=== PATIENT | male | born 1935 | race Caucasian/White ===

== ENCOUNTER 2017-06-24 10:58 | Day surgery (SDC) | payer MEDICARE, BC ==
[~2017-06-24 10:58] MED LIST: Acetaminophen TAB* 325 MG PO PRN; Buffered Lidocaine 0.9% SYRIN* 5 ML/SYR SYRINGE INTRADERM ONE; Cyclopentolate 1% OPTH.SOL* 2 ML BTL ONE; Ketorolac 0.5% OPHTH (NF) 0.5 % 5 ML BTL ONE; Lidocaine 1% MPF* 2 ML VIAL ONE; Midazolam* 1 MG/ML 2 ML VIAL (2 MG) ONE; Neomycin/Polymy/Dex OPHTH.OIN* 3.5 GM ONE; Phenylephrine 2.5% OPTH.SOL* 2 ML BTL ONE; Povidone Iodine 5% OPTH* 30 ML BTL ONE; Tetracaine 0.5% OPTH.SOL 4 ML* 1 DROP BTL ONE; Tropicamide 1% OPTH.SOL* BTL ONE; acetaZOLAMIDE TAB* 250 MG ONE
[2017-06-24 12:42] VITALS: BP 118/64
--- NOTE | 2017-06-25 11:49 | OP ---
DATE OF OPERATION: 06/24/17 - [facility] DATE OF : 35 SURGEON: Eder Cevallos MD ANESTHESIA: Monitored anesthesia care. PRE-OP DIAGNOSIS: Cataract, left eye. POST-OP DIAGNOSIS: Cataract, left eye. OPERATIVE PROCEDURE: Extracapsular cataract extraction of the left eye with intraocular lens implant. IMPLANTS: SN60WF 22.5 diopter lens, left eye. COMPLICATIONS: None. DESCRIPTION OF PROCEDURE: The patient was given phenylephrine 2.5% and cyclopentolate 1% eyedrops to the operative eye in the preoperative area. The patient was brought to the operating room where a time-out was taken to identify the correct patient, site, and side of surgery. The patient's left eye was prepped and draped in the usual sterile fashion with 5% Betadine. A second time-out was taken to verify the correct patient, site, and side of surgery, and correct lens selection. A lid speculum was placed to the left eye. A 1-mm paracentesis blade was used to make a clear corneal incision in the inferotemporal position. Preservative-free 1% lidocaine was injected into the anterior chamber. A DisCoVisc was injected into the anterior chamber. A 2.75-mm keratome blade was used to make a triplanar incision at the superotemporal position. A cystotome initiated a capsulorrhexis which was completed with Utrata forceps in a continuous and curvilinear manner. Hydrodissection of the lens was performed with BSS on a cannula. The lens could be spun in the capsular bag. The phacoemulsification handpiece was used with a vqkzde-qib-rycewbe technique to remove the nucleus in its entirety with 27.8 CDE. The I/A handpiece then removed the residual cortical lens material. DisCoVisc was injected to inflate the capsular bag. The planned SN60WF 22.5 diopter lens was injected into the capsular bag. The residual DisCoVisc was removed from the eye with the I/A handpiece. The corneal incisions were hydrated and no leaks occurred at physiologic pressure around 20 mmHg per palpation. The lid speculum was removed and drapes removed. Maxitrol ointment was placed to the surface of the operative eye. An adhesive patch and shield was then placed on the operative eye. The patient was taken to the postoperative area in stable condition. [id number] #: [id number] MTDD
== END 2017-06-24 12:55 | disposition home or self-care (01) ==
LOC: OREAST 10:58
PROVIDERS: ATTEND Student in an Organized Health Care Education/Training Program
DX: H25.12 Age-related nuclear cataract, left eye (principal); H35.3134 Nonexudative age-related macular degeneration, bilateral, advanced atrophic with subfoveal involvement; I50.9 Heart failure, unspecified; Z87.891 Personal history of nicotine dependence; I25.10 Atherosclerotic heart disease of native coronary artery without angina pectoris; N18.3 Chronic kidney disease, stage 3 (moderate); F10.20 Alcohol dependence, uncomplicated; I27.20 Pulmonary hypertension, unspecified; I42.9 Cardiomyopathy, unspecified
CPT/HCPCS: A9270-GY; J2250; V2632

== ENCOUNTER 2017-07-01 08:36 | Day surgery (SDC) | payer MEDICARE, BC ==
[~2017-07-01 08:36] MED LIST changes: -Cyclopentolate 1% OPTH.SOL* 2 ML BTL ONE; -Ketorolac 0.5% OPHTH (NF) 0.5 % 5 ML BTL ONE; -Lidocaine 1% MPF* 2 ML VIAL ONE; -Midazolam* 1 MG/ML 2 ML VIAL (2 MG) ONE; -Neomycin/Polymy/Dex OPHTH.OIN* 3.5 GM ONE; -Phenylephrine 2.5% OPTH.SOL* 2 ML BTL ONE; -Povidone Iodine 5% OPTH* 30 ML BTL ONE; -Tetracaine 0.5% OPTH.SOL 4 ML* 1 DROP BTL ONE; -Tropicamide 1% OPTH.SOL* BTL ONE; -acetaZOLAMIDE TAB* 250 MG ONE
[2017-07-01] MEDS ORDERED: Midazolam* 1 MG/ML 2 ML VIAL (2 MG) ONE (09:07)
[2017-07-01 10:49] VITALS: BP 93/58
[2017-07-01] MEDS ORDERED: Cyclopentolate 1% OPTH.SOL* 2 ML BTL ONE (14:33)
[2017-07-01] MEDS ORDERED: Neomycin/Polymy/Dex OPHTH.OIN* 3.5 GM ONE (14:33)
[2017-07-01] MEDS ORDERED: Ketorolac 0.5% OPHTH (NF) 0.5 % 5 ML BTL ONE (14:33)
[2017-07-01] MEDS ORDERED: Tetracaine 0.5% OPTH.SOL 4 ML* 1 DROP BTL ONE (14:33)
[2017-07-01] MEDS ORDERED: acetaZOLAMIDE TAB* 250 MG ONE (14:33)
[2017-07-01] MEDS ORDERED: Povidone Iodine 5% OPTH* 30 ML BTL ONE (14:33)
[2017-07-01] MEDS ORDERED: Phenylephrine 2.5% OPTH.SOL* 2 ML BTL ONE (14:33)
[2017-07-01] MEDS ORDERED: Tropicamide 1% OPTH.SOL* BTL ONE (14:33)
[2017-07-01] MEDS ORDERED: Lidocaine 1% MPF* 2 ML VIAL ONE (14:33)
--- NOTE | 2017-07-02 02:47 | OP ---
DATE OF OPERATION: 07/01/17 - [facility] DATE OF : 35 SURGEON: Eder Cevallos MD ANESTHESIOLOGIST: Sruthi Avalos MD ANESTHESIA: Monitored anesthesia care. PRE-OP DIAGNOSIS: Cataract, right eye. POST-OP DIAGNOSIS: Cataract, right eye. OPERATIVE PROCEDURE: Extracapsular cataract extraction of the right eye with intraocular lens implant. IMPLANTS: SN60WF 21.5 diopter lens to the right eye. COMPLICATIONS: None. DESCRIPTION OF PROCEDURE: The patient was given phenylephrine 2.5% and cyclopentolate 1% eyedrops to the operative eye in the preoperative area. The patient was brought to the operating room where a time-out was taken to identify the correct patient, site, and side of surgery. The patient's right eye was prepped and draped in the usual sterile fashion with 5% Betadine. A second timeout was taken to verify the correct patient, site and side of surgery , and correct lens selection. A lid speculum was placed in the right eye. A 1- mm paracentesis blade was used to make a clear corneal incision in the superotemporal position. Preservative-free 1% lidocaine was injected into the anterior chamber. DisCoVisc was then injected into the anterior chamber. A 2.75 -mm keratome blade was used to make a triplanar incision at the inferotemporal position. A cystotome initiated a capsulorrhexis, which was completed with Utrata forceps in a continuous and curvilinear manner. Hydrodissection of the lens was performed with BSS on a cannula. The lens could be spun in the capsular bag. The phacoemulsification handpiece was used with a divide-and- conquer technique to remove the nucleus in its entirety with 25.04 CDE. The I/ A handpiece then removed the residual cortical lens material. DisCoVisc was injected to inflate the capsular bag. The planned SN60WF 21.5 diopter lens was injected in the capsular bag. The residual DisCoVisc was removed from the eye with the I/A handpiece. The corneal incisions were hydrated and no leaks occurred at physiologic pressure around 20 mmHg per palpation. The lid speculum was removed and drapes removed. Maxitrol ointment was placed to the surface of the operative eye. An adhesive patch and shield was then placed on the operative eye. The patient was taken to the postoperative area in stable condition. [id number] #: [id number] MTDD
== END 2017-07-01 10:21 | disposition home or self-care (01) ==
LOC: OREAST 08:36
PROVIDERS: ATTEND Student in an Organized Health Care Education/Training Program
DX: H25.11 Age-related nuclear cataract, right eye (principal); H35.3134 Nonexudative age-related macular degeneration, bilateral, advanced atrophic with subfoveal involvement; I10 Essential (primary) hypertension; I50.9 Heart failure, unspecified; Z87.891 Personal history of nicotine dependence
CPT/HCPCS: A9270-GY; J2250; V2632

== ENCOUNTER 2018-01-17 03:40 | Inpatient (IN) | payer MEDICARE, BC ==
--- OUTSIDE RECORDS SUMMARY | 2018-01-17 03:47 | XMS REPORT ---
:1935 External Reference #:[id number] Author Organization [facility] Address [address] [place] [address] Phone [phone] Support Name Relationship Address Phone Amanda Leon Unavailable [address] [facility] [facility] [phone] [place] [address] Care Team Providers Name Role Phone Alexis Garduno MD Care Team Information Occupational Hygienist Unavailable Alexis Garduno MD Primary Care Physician Unavailable Payers Type Date Identification Numbers Payment Provider Subscriber Medicare Primary Policy Number: [id number] Medicare Tunde Leon PayID: [id number] [address] [place] [address] [facility] Policy Number: [id number] [facility] Tunde Leon PayID: [id number] [address] [place] [address] Problems Date Description Provider Status Onset: 07/06/2016 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 Active Onset: 08/07/2016 Multi vessel coronary artery disease Suzanna Lopez M.D. Active Onset: 10/09/2016 Premature beats Suzanna Lopez M.D. Active Onset: 11/16/2016 Nonobstructive cardiomyopathy uSzanna Lopez M.D. Active Onset: 12/20/2017 Mitral valve disorder Suzanna Lopez M.D. Active Onset: 12/20/2017 Tricuspid valve disorder, non-rheumatic Suzanna Lopez M.D. Active Family History Date Family Member(s) Problem(s) Comments Father Cerebrovascular Accident (CVA) Father Hypotension Mother Hypertension Social History Type Date Description Comments Marital Status Lives With Occupation Retired Cigarette Use Former Cigarette Smoker ETOH Use Denies alcohol use ETOH Use Has consumed alcohol in the Rehab . past Smoking Patient is a former smoker smoked about 40yrs, anywhere from 2-5PPD, quit 2000 Recreational Drug Use Denies Drug Use Daily Caffeine Does Not Consume Caffeine Exercise Type/Frequency Does not exercise Allergies, Adverse Reactions, Alerts Date Description Reaction Status Severity Comments 07/03/2016 NKDA active Medications Medication Date Status Form Strength Qnty SIG Indications Ordering Provider Lipitor 01/09/ Active Tablets 10mg 30tabs take 1 tab I25.10 Toshia S. 2018 by mouth yoel Matt N.P. Entrestnicky 11/16/ Active Tablets 24-26mg 180tab 1 tablet I42.8 Suzanna 2016 s tablet by [place], mouth twice M.D. a day Potassium 11/16/ Active Capsules 10Meq 180cap 2 by mouth I42.8 Suzanna Chloride ER 2017 ER s every day Lg Lopez Carvedilol 10/09/ Active Tablets 12.5mg 180tab 1 by mouth I42.9 Suzanna 2016 s twice a day John, am/pm M.DAspen [place] / Active Tablets 7.8-6.25-1 prn Unknown Plus Night 0000 Efferv 0-500mg Cold Formula Chocolated / Active Chewtabs 15mg 1 chewtablet Unknown Laxative 0000 po daily as needed Brian / Active Tablets DR 81mg 1 tablet po Unknown Aspirin Ec 0000 daily Low Dose Xanax / Active Tablets one by mouth Unknown 0000 up to three times daily as needed for anxiety Potassium 10/03/ Hx Packet 20Meq 90unit 1 packet I42.8 Suzanna Chloride 2016 - s daily [place], 11/16/ M.D. 2017 Carvedilol 08/14/ Hx Tablets 6.25mg 60tabs 1 tab by I42.9 Suzanna 2017 - mouth twice John, 10/09/ a day M.D. 2016 Potassium 07/23/ Hx Tablets ER 20Meq 90tabs 1 by mouth Suzanna Chloride ER 2017 - every day [place], 10/03/ M.D. 2017 Metoprolol 06/18/ Hx Tablets ER 25mg 1 by mouth Niziol, Succinate ER 2017 - 24HR every day Alexis 08/14/ 2017 Lasix 06/18/ Hx Tablets 20mg 45tabs 1tablet by Suzanna 2017 - mouth 4 John, 11/30/ times M.D. 2017 weekly, on Saturday,, Saturday and Saturday.- On Hold 11/26/16 Potassium / Hx 20Meq one tab Suzanna Chloride 0000 - daily [place], 07/23/ M.D. 2016 Lisinopril / Hx Tablets 10mg 45tabs 1 tab po qAM I42.8 Suzanna 0000 - and 1/2 tab John, 11/16/ qPM M.D. 2016 81MG / Hx Tabs 1 by mouth Unknown 0000 - every day 2016 Oxygen / Hx Misc 3 lpm Unknown 0000 - continuous( pt has not 2017 used in 2 weeks) Sennosides 00/ Hx as directed Unknown 0000 - 2016 Aleve / Hx Tablets 220mg as needed Unknown 0000 - 2016 Vital Signs Date Vital Result Comment 01/09/2018 Height 68 inches 5'8" Weight 172.00 lb w/shoes Heart Rate 64 /min BP Systolic Sitting 154 mmHg Lue reg cuff BP Diastolic Sitting 82 mmHg Lue reg cuff BMI (Body Mass Index) 26.1 kg/m2 Ejection Fraction 40-45% Echo 12/20/17 12/20/2017 Height 68 inches 5'8" Weight 173.00 lb w/o shoes Heart Rate 74 /min BP Systolic Sitting 122 mmHg rue lg cuff BP Diastolic Sitting 62 mmHg rue lg cuff BP Systolic Standing 132 mmHg rue lg cuff BP Diastolic Standing 68 mmHg rue lg cuff Respiratory Rate 18 /min BMI (Body Mass Index) 26.3 kg/m2 Ejection Fraction 30-35% echo 09/11/16 03/05/2017 Height 68 inches 5'8" Weight 172.00 lb with shoes Heart Rate 78 /min BP Systolic Sitting 122 mmHg Lue reg cuff BP Diastolic Sitting 72 mmHg Lue reg cuff BP Systolic Standing 118 mmHg Lue reg cuff BP Diastolic Standing 76 mmHg Lue reg cuff Respiratory Rate 16 /min BMI (Body Mass Index) 26.1 kg/m2 Ejection Fraction 30-35% 09/11/2016-echo 12/11/2016 Height 68 inches 5'8" Weight 169.00 lb no shoes Heart Rate 62 /min BP Systolic Sitting 116 mmHg Lue reg cuff BP Diastolic Sitting 70 mmHg Lue reg cuff BP Systolic Standing 112 mmHg Lue reg cuff BP Diastolic Standing 68 mmHg Lue reg cuff Respiratory Rate 16 /min BMI (Body Mass Index) 25.7 kg/m2 Ejection Fraction 30-35% 09/11/2016-echo 11/30/2016 Height 68 inches 5'8" Weight 168.31 lb with shoes Heart Rate 68 /min BP Systolic Sitting 134 mmHg Rue reg cuff BP Diastolic Sitting 80 mmHg Rue reg cuff BP Systolic Standing 128 mmHg Rue reg cuff BP Diastolic Standing 88 mmHg Rue reg cuff Respiratory Rate 17 /min BMI (Body Mass Index) 25.6 kg/m2 Ejection Fraction 30-35% date 09/11/16 ECHO 11/16/2016 Height 68 inches 5'8" Weight 170.12 lb w/o shoes Heart Rate 64 /min BP Systolic Sitting 120 mmHg LA reg cuff BP Diastolic Sitting 78 mmHg LA reg cuff BP Systolic Standing 120 mmHg LA reg cuff BP Diastolic Standing 80 mmHg LA reg cuff BMI (Body Mass Index) 25.9 kg/m2 Ejection Fraction 30% - 35% echo 09/11/16 10/09/2016 Height 68 inches 5'8" Weight 174.00 lb without shoes Heart Rate 66 /min BP Systolic Sitting 114 mmHg Lue reg cuff BP Diastolic Sitting 78 mmHg Lue reg cuff BP Systolic Standing 120 mmHg Lue reg cuff BP Diastolic Standing 82 mmHg Lue reg cuff Respiratory Rate 16 /min BMI (Body Mass Index) 26.5 kg/m2 Ejection Fraction 30-35% date 09/11/2016 ECHO 09/04/2016 Height 68 inches 5'8" Weight 178.00 lb without shoes Heart Rate 82 /min BP Systolic Sitting 110 mmHg Lue reg cuff BP Diastolic Sitting 80 mmHg Lue reg cuff BP Systolic Standing 114 mmHg Lue reg cuff BP Diastolic Standing 70 mmHg Lue reg cuff Respiratory Rate 17 /min BMI (Body Mass Index) 27.1 kg/m2 08/14/2016 Height 68 inches 5'8" Weight 179.50 lb Heart Rate 70 /min BP Systolic Sitting 142 mmHg Lue reg cuff BP Diastolic Sitting 78 mmHg Lue reg cuff BP Systolic Standing 144 mmHg Lue reg cuff BP Diastolic Standing 84 mmHg Lue reg cuff Respiratory Rate 16 /min BMI (Body Mass Index) 27.3 kg/m2 Ejection Fraction 20-25% echo 06/15/16 08/14/2016 Height 68 inches 5'8" Ejection Fraction 20-25% as of 06/15/16 echo 08/07/2016 Height 68 inches 5'8" Weight 182.00 lb with out shoes Heart Rate 78 /min BP Systolic Sitting 130 mmHg Lue regular cuff BP Diastolic Sitting 84 mmHg Lue regular cuff BP Systolic Standing 150 mmHg Lue regular cuff BP Diastolic Standing 88 mmHg Lue regular cuff Respiratory Rate 16 /min BMI (Body Mass Index) 27.7 kg/m2 Ejection Fraction 20-25% date 06/15/2016 ECHO 07/18/2016 Height 68.5 inches 5'8.50" Weight 184.00 lb Heart Rate 72 /min 74 BP Systolic Sitting 140 mmHg left arm, reg cuff BP Diastolic Sitting 92 mmHg left arm, reg cuff BP Systolic Standing 136 mmHg left arm, reg cuff BP Diastolic Standing 88 mmHg left arm, reg cuff Respiratory Rate 16 /min BMI (Body Mass Index) 27.6 kg/m2 Ejection Fraction 20-25% 06/15/16 07/06/2016 Height 68.5 inches 5'8.50" Weight 183.00 lb with shoes Heart Rate 88 /min BP Systolic 130 mmHg right arm, reg cuff BP Diastolic 80 mmHg right arm, reg cuff BP Systolic Sitting 126 mmHg left arm, reg cuff BP Diastolic Sitting 90 mmHg left arm, reg cuff BP Systolic Standing 126 mmHg left arm, reg cuff BP Diastolic Standing 80 mmHg left arm, reg cuff BMI (Body Mass Index) 27.4 kg/m2 Results Test Date Test Result H/L Range Note Lipid Panel - [facility] 01/09/2018 Creatine Kinase(CK) <pending> CBC No Diff 12/26/2017 White Blood Count 8.2 10^3/uL 3.5-10.8 Red Blood Count 4.23 10^6/uL 4.00-5.40 Hemoglobin 13.9 g/dL Low 14.0-18.0 Hematocrit 41 % Low 42-52 Mean Corpuscular Volume 97 fL High 80-94 Mean Corpuscular Hemoglobin 33 pg High 27-31 Mean Corpuscular HGB Conc 34 g/dL 31-36 Red Cell Distribution Width 14 % 10.5-15 Platelet Count 206 10^3/uL 150-450 Mean Platelet Volume 8.9 um3 7.4-10.4 Comp Metabolic Panel 12/26/2017 Sodium 138 mmol/L 135-145 Potassium 4.7 mmol/L 3.5-5.0 Chloride 100 mmol/L Low 101-111 Co2 Carbon Dioxide 31 mmol/L 22-32 Anion Gap 7 mmol/L 2-11 Glucose 197 mg/dL High 70-100 Blood Urea Nitrogen 18 mg/dL 6-24 Creatinine 1.91 mg/dL High 0.67-1.17 BUN/Creatinine Ratio 9.4 8-20 Calcium 10.3 mg/dL 8.6-10.3 Total Protein 6.2 g/dL Low 6.4-8.9 Albumin 3.3 g/dL 3.2-5.2 Globulin 2.9 g/dL 2-4 Albumin/Globulin Ratio 1.1 1-3 Total Bilirubin 1.00 mg/dL 0.2-1.0 Alkaline Phosphatase 50 U/L 34-104 Alt 7 U/L 7-52 Ast 14 U/L 13-39 Egfr Non- 33.9 >60 Egfr 41.0 >60 1 Lipid Profile (Trig/Chol/HDL) 12/23/2017 Triglycerides 140 mg/dL 2 Cholesterol 148 mg/dL 3 HDL Cholesterol 37.0 mg/dL 4 LDL Cholesterol 83 mg/dL 5 Basic Metabolic Panel 11/29/2017 Sodium 142 mmol/L 135-145 Chloride 104 mmol/L 101-111 Co2 Carbon Dioxide 31 mmol/L 22-32 Calcium 9.4 mg/dL 8.6-10.3 Potassium 5.0 mmol/L 3.5-5.0 Anion Gap 7 mmol/L 2-11 Glucose 116 mg/dL High 70-100 Blood Urea Nitrogen 12 mg/dL 6-24 Creatinine 1.46 mg/dL High 0.67-1.17 BUN/Creatinine Ratio 8.2 8-20 Egfr Non- 46.3 >60 Egfr 59.6 >60 6 Laboratory test finding 11/29/2017 B-Type Natriuretic 198 pg/mL High 7 Peptide BNP Laboratory test finding 03/05/2017 Magnesium 1.9 mg/dL 1.9-2.7 Basic Metabolic Panel 03/05/2017 Sodium 139 mmol/L 133-145 Potassium 4.5 mmol/L 3.5-5.0 Chloride 103 mmol/L 101-111 Co2 Carbon Dioxide 30 mmol/L 22-32 Anion Gap 6 mmol/L 2-11 Glucose 131 mg/dL High 70-100 Blood Urea Nitrogen 16 mg/dL 6-24 Creatinine 1.47 mg/dL High 0.67-1.17 BUN/Creatinine Ratio 10.9 8-20 Calcium 8.9 mg/dL 8.6-10.3 Egfr Non- 46.0 >60 Egfr 59.1 >60 8 Basic Metabolic Panel 10/09/2016 Sodium 139 mmol/L 133-145 Potassium 4.7 mmol/L 3.5-5.0 Chloride 102 mmol/L 101-111 Co2 Carbon Dioxide 31 mmol/L 22-32 Anion Gap 6 mmol/L 2-11 Glucose 137 mg/dL High 70-100 Blood Urea Nitrogen 20 mg/dL 6-24 Creatinine 1.48 mg/dL High 0.67-1.17 BUN/Creatinine Ratio 13.5 8-20 Calcium 9.7 mg/dL 8.6-10.3 Egfr Non- 45.7 >60 Egfr 58.8 >60 9 CBC Auto Diff 07/11/2016 White Blood Count 9.0 10^3/uL 3.5-10.8 Red Blood Count 4.47 10^6/uL 4.0-5.4 Hemoglobin 14.2 g/dL 14.0-18.0 Hematocrit 42 % 42-52 Mean Corpuscular Volume 94 fL 80-94 Mean Corpuscular Hemoglobin 32 pg High 27-31 Mean Corpuscular HGB Conc 34 g/dL 31-36 Red Cell Distribution Width 13 % 10.5-15 Platelet Count 201 10^3/uL 150-450 Mean Platelet Volume 9 um3 7.4-10.4 Abs Neutrophils 6.5 10^3/uL 1.5-7.7 Abs Lymphocytes 1.5 10^3/uL 1.0-4.8 Abs Monocytes 0.8 10^3/uL 0-0.8 Abs Eosinophils 0.2 10^3/uL 0-0.6 Abs Basophils 0 10^3/uL 0-0.2 Abs Nucleated RBC 0 10^3/uL Granulocyte % 72.1 % 38-83 Lymphocyte % 16.7 % Low 25-47 Monocyte % 8.6 % 1-9 Eosinophil % 2.4 % 0-6 Basophil % 0.2 % 0-2 Nucleated Red Blood Cells % 0 Inr/Protime 07/11/2016 Inr 0.94 0.89-1.11 Basic Metabolic Panel 07/11/2016 Sodium 138 mmol/L 133-145 Potassium 4.3 mmol/L 3.5-5.0 Chloride 102 mmol/L 101-111 Co2 Carbon Dioxide 32 mmol/L 22-32 Anion Gap 4 mmol/L 2-11 Glucose 158 mg/dL High 70-100 Blood Urea Nitrogen 18 mg/dL 6-24 Creatinine 1.31 mg/dL High 0.67-1.17 BUN/Creatinine Ratio 13.7 8-20 Calcium 8.3 mg/dL Low 8.6-10.3 Egfr Non- 52.6 >60 Egfr 67.7 >60 10 Cath Panel 07/11/2016 Partial Thrombo Time PTT 30.4 seconds 26.0-36.3 1 Because ethnic data is not always readily available, this report includes an eGFR for both -Americans and non- Americans. The National Kidney Disease Education Program (NKDEP) does not endorse the use of the MDRD equation for patients that are not between the ages of 18 and 70, are , have extremes of body size, muscle mass, or nutritional status, or are non- or non-. According to the National Kidney Foundation, irrespective of diagnosis, the stage of the disease is based on the level of kidney function: Stage Description GFR(mL/min/1.73 m(2)) 1 Kidney damage with normal or decreased GFR 90 2 Kidney damage with mild decrease in GFR 60-89 3 Moderate decrease in GFR 30-59 4 Severe decrease in GFR 15-29 5 Kidney failure <15 (or dialysis) 2 Desirable: <150 Borderline High: 150-199 High: 200-499 Very High: >500 3 Desirable: <200 Borderline High: 200-239 High: >239 4 Low: <40 Desirable: 40-60 High: >60 5 Desirable: <100 Near Optimal: 100-129 Borderline High: 130-159 High: 160-189 Very High: >189 6 Because ethnic data is not always readily available, this report includes an eGFR for both -Americans and non- Americans. The National Kidney Disease Education Program (NKDEP) does not endorse the use of the MDRD equation for patients that are not between the ages of 18 and 70, are , have extremes of body size, muscle mass, or nutritional status, or are non- or non-. According to the National Kidney Foundation, irrespective of diagnosis, the stage of the disease is based on the level of kidney function: Stage Description GFR(mL/min/1.73 m(2)) 1 Kidney damage with normal or decreased GFR 90 2 Kidney damage with mild decrease in GFR 60-89 3 Moderate decrease in GFR 30-59 4 Severe decrease in GFR 15-29 5 Kidney failure <15 (or dialysis) 7 >100 to <200 pg/mL: likely compensated congestive heart failure (CHF) 200 to 400 pg/mL: likely moderate CHF >400 pg/mL: likely moderate to severe CHF 8 Because ethnic data is not always readily available, this report includes an eGFR for both -Americans and non- Americans. The National Kidney Disease Education Program (NKDEP) does not endorse the use of the MDRD equation for patients that are not between the ages of 18 and 70, are , have extremes of body size, muscle mass, or nutritional status, or are non- or non-. According to the National Kidney Foundation, irrespective of diagnosis, the stage of the disease is based on the level of kidney function: Stage Description GFR(mL/min/1.73 m(2)) 1 Kidney damage with normal or decreased GFR 90 2 Kidney damage with mild decrease in GFR 60-89 3 Moderate decrease in GFR 30-59 4 Severe decrease in GFR 15-29 5 Kidney failure <15 (or dialysis) 9 Because ethnic data is not always readily available, this report includes an eGFR for both -Americans and non- Americans. The National Kidney Disease Education Program (NKDEP) does not endorse the use of the MDRD equation for patients that are not between the ages of 18 and 70, are , have extremes of body size, muscle mass, or nutritional status, or are non- or non-. According to the National Kidney Foundation, irrespective of diagnosis, the stage of the disease is based on the level of kidney function: Stage Description GFR(mL/min/1.73 m(2)) 1 Kidney damage with normal or decreased GFR 90 2 Kidney damage with mild decrease in GFR 60-89 3 Moderate decrease in GFR 30-59 4 Severe decrease in GFR 15-29 5 Kidney failure <15 (or dialysis) 10 Because ethnic data is not always readily available, this report includes an eGFR for both -Americans and non- Americans. The National Kidney Disease Education Program (NKDEP) does not endorse the use of the MDRD equation for patients that are not between the ages of 18 and 70, are , have extremes of body size, muscle mass, or nutritional status, or are non- or non-. According to the National Kidney Foundation, irrespective of diagnosis, the stage of the disease is based on the level of kidney function: Stage Description GFR(mL/min/1.73 m(2)) 1 Kidney damage with normal or decreased GFR 90 2 Kidney damage with mild decrease in GFR 60-89 3 Moderate decrease in GFR 30-59 4 Severe decrease in GFR 15-29 5 Kidney failure <15 (or dialysis) Procedures Date CPT Code Description Status 12/26/2017 54394 ECHO Transthorasic Realtime 2D W Doppler & Color Flow Completed Hosp 12/20/2017 58921 EKG Tracing & Interpretation Completed 04/05/2017 33359 Echocardiogram, Limited Study Completed 11/30/2016 60187 EKG Tracing & Interpretation Completed 09/18/2016 66284 Holter Monitor Review (24 hr)dr review & interp only Completed 09/14/2016 13000 ECG Monitor/Recording W/Visual Superimposition Scanning Completed 09/11/2016 10021 ECHO Transthoracic, Real-Time 2D With Doppler And Color Completed Flow 09/04/2016 59917 EKG Tracing & Interpretation Completed 07/12/2016 20578 RT & lt Cath W/Injx HRT Art&L Ventr Img S&I Completed 07/06/2016 85915 EKG Tracing & Interpretation Completed 06/14/2016 01702 ECHO Transthorasic Realtime 2D W Doppler & Color Flow Completed Hosp Encounters Type Date Location Provider CPT E/M Dx Office Visit 01/09/2018 [facility] Toshia Tang N.P. 04788 I34.0 2:00p [facility] I36.1 I50.42 I25.10 I42.9 Office Visit 12/20/2017 9:00a [facility] Suzanna Lopez M.D. 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 20754 I42.8 [facility] Z51.81 Office Visit 11/16/2016 9:00a [facility] Suzanna Lopez M.D. 44511 I42.8 [facility] AT [facility] I50.42 F51.5 I25.10 Office Visit 10/09/2016 1:45p [facility] Suzanna Lopez M.D. 13785 I42.9 [facility] I49.3 Office Visit 09/04/2016 9:00a [facility] KEILA Gonzalez 77905 I25.10 I42.9 R00.2 Office Visit 08/14/2016 10:00a [facility] KEILA Gonzalez 09073 I42.9 I25.10 Office Visit 08/07/2016 3:45p [facility] Suzanna Lopez M.D. 24918 I42.9 [facility] I50.42 I25.10 Office Visit 07/18/2016 11:20a [facility] Tae Harman, 90438 I42.9 [facility] AT [facility] , FACC, FSCAI Office Visit 07/06/2016 9:40a [facility] Suzanna Lopez M.D. 89475 I42.9 [facility] AT [facility] I50.42 N18.9 R06.02 Office Visit 06/16/2016 2:09p [facility], Marco Sher, 41469 I50.9 Hospitalists MElroy N18.3 Office Visit 06/15/2016 2:09p [facility],evan Pirce, 37304 I50.9 Hospitalists MAspenDAspen N18.3 Office Visit 06/14/2016 2:08p [facility] Suze Price 30694 I50.9 Hospitalists Lg N18.3 Office Visit 06/13/2016 2:08p [facility] Suze Price, 07361 I50.9 Hospitalists Lg N17.9 Plan of Care 01/09/2018 - Toshia Tang N.PAspenI34.0 Nonrheumatic mitral (valve) [id number] Nonrheumatic tricuspid (valve) kshmfoupcqxwvW73.42 Chronic combined systolic and diastolic hrt failI25.10 [place] heart disease of [place] coronary artery w/o ang pctrsNew Medication:Lipitor 10 mgComments:LDL slightly up at 83Follow up:LS 6mo OVRecommendations:Start low dose lipitor 3 days a week Have labs checked in 6-8 weeks.I42.9 Cardiomyopathy, unspecifiedComments:Heart function improved to 40-45% Kidney function is slightly up at 1.9 (from 1.4) Recommendations:Continue Entresto We will recheck kidney function in 2 months. Elevation could be from entresto or other medications. Lectrolytes are normal.
--- OUTSIDE RECORDS SUMMARY | 2018-01-17 03:47 | XMS REPORT ---
:1935 External Reference #:[id number] Author Organization [facility] Address [address] [place] [address] [place] [address] Phone [phone] Care Team Providers Name Role Phone Alexis Garduno MD Care Team Information Patient Registration Representative Unavailable Alexis Garduno MD Primary Care Physician Unavailable Payers Type Date Identification Numbers Payment Provider Subscriber Medicare Primary Policy Number: [id number] Medicare Tunde Leon PayID: [id number] [address] [place] [address] [facility] Part B Policy Number: [id number] [facility] Tunde Leon PayID: [id number] [address] [place] [address] Problems Date Description Provider Status Onset: 07/06/2016 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 Active Onset: 08/07/2016 Multi vessel coronary artery disease Suzanna Lopez M.D. Active Onset: 10/09/2016 Premature beats Suzanna Lopez M.D. Active Onset: 11/16/2016 Nonobstructive cardiomyopathy Suzanna Lopez M.D. Active Onset: 12/20/2017 Tricuspid valve disorder, non-rheumatic Suzanna Lopez M.D. Active Onset: 12/20/2017 Mitral valve disorder Suzanna Lopez M.D. Active Family History Date [...] Form Strength Qnty SIG Indications Ordering Provider Entresto 11/16/ Active Tablets 24-26mg 180tab 1 tablet I42.8 Suzanna 2016 s tablet by John, mouth twice M.D. a day Potassium 11/16/ Active Capsules 10Meq 180cap 2 by mouth I42.8 Suzanna Chloride ER 2017 ER s every day Joan Lopez. Carvedilol 10/09/ Active Tablets 12.5mg 180tab 1 by mouth I42.9 Suzanna 2017 s twice a day John, am/pm M.D. [place] / Active Tablets 7.8-6.25-1 prn Unknown Plus Night 0000 Efferv 0-500mg Cold Formula Chocolated / Active Chewtabs 15mg 1 chewtablet Unknown Laxative 0000 po daily as needed Brian / Active Tablets DR 81mg 1 tablet po Unknown Aspirin Ec 0000 daily Low Dose Potassium 10/03/ Hx Packet 20Meq 90unit 1 packet I42.8 Suzanna Chloride 2016 - s daily Hamilton, 11/16/ M.D. 2017 Carvedilol 08/14/ Hx Tablets 6.25mg 60tabs 1 tab by I42.9 Suzanna 2017 - mouth twice John, 10/09/ a day M.D. 2017 Potassium 07/23/ Hx Tablets ER 20Meq 90tabs 1 by mouth Suzanna Chloride ER 2017 - every day Hamilton, 10/03/ M.D. 2016 Metoprolol 06/18/ Hx Tablets ER 25mg 1 by mouth Niziol, Succinate ER 2017 - 24HR every day Alexis 08/14/ 2017 Lasix 06/18/ Hx Tablets 20mg 45tabs 1tablet by Suzanna Portillo - mouth 4 John, 11/30/ times M.D. 2017 weekly, on Saturday,, Saturday and Saturday.- On Hold 11/26/16 Potassium / Hx 20Meq one tab Suzanna Chloride 0000 - daily Hamilton, 07/23/ M.D. 2016 Lisinopril Hx Tablets 10mg 45tabs 1 tab po qAM I42.8 Suzanna 0000 - and 1/2 tab Hamilton, 11/16/ qPM M.D. 2016 81MG / Hx Tabs 1 by mouth Unknown 0000 - every day 2016 Oxygen / Hx Misc 3 lpm Unknown 0000 - continuous( pt has not 2017 used in 2 weeks) Sennosides / Hx as directed Unknown 0000 - 2016 Aleve / Hx Tablets 220mg as needed Unknown - 2016 Vital Signs Date Vital Result Comment 12/20/2017 Height 68 inches 5'8" Weight 173.00 [...] Test Date Test Result H/L Range Note Basic Metabolic Panel 11/29/2017 Sodium 142 mmol/L 135-145 Chloride 104 mmol/L 101-111 Co2 Carbon Dioxide 31 mmol/L 22-32 Calcium 9.4 mg/dL 8.6-10.3 Potassium 5.0 mmol/L 3.5-5.0 Anion Gap 7 mmol/L 2-11 Glucose 116 mg/dL High 70-100 Blood Urea Nitrogen 12 mg/dL 6-24 Creatinine 1.46 mg/dL High 0.67-1.17 BUN/Creatinine Ratio 8.2 8-20 Egfr Non- 46.3 >60 Egfr 59.6 >60 1 Laboratory test finding 11/29/2017 B-Type Natriuretic 198 pg/mL High 2 Peptide BNP Basic Metabolic Panel 03/05/2017 Sodium 139 mmol/L 133-145 Potassium 4.5 mmol/L 3.5-5.0 Chloride 103 mmol/L 101-111 Co2 Carbon Dioxide 30 mmol/L 22-32 Anion Gap 6 mmol/L 2-11 Glucose 131 mg/dL High 70-100 Blood Urea Nitrogen 16 mg/dL 6-24 Creatinine 1.47 mg/dL High 0.67-1.17 BUN/Creatinine Ratio 10.9 8-20 Calcium 8.9 mg/dL 8.6-10.3 Egfr Non- 46.0 >60 Egfr 59.1 >60 3 Laboratory test finding 03/05/2017 Magnesium 1.9 mg/dL 1.9-2.7 Basic Metabolic Panel 10/09/2016 Sodium 139 mmol/L 133-145 Potassium 4.7 mmol/L 3.5-5.0 Chloride 102 mmol/L 101-111 Co2 Carbon Dioxide 31 mmol/L 22-32 Anion Gap 6 mmol/L 2-11 Glucose 137 mg/dL High 70-100 Blood Urea Nitrogen 20 mg/dL 6-24 Creatinine 1.48 mg/dL High 0.67-1.17 BUN/Creatinine Ratio 13.5 8-20 Calcium 9.7 mg/dL 8.6-10.3 Egfr Non- 45.7 >60 Egfr 58.8 >60 4 Basic Metabolic Panel 07/11/2016 Sodium 138 mmol/L 133-145 Potassium 4.3 mmol/L 3.5-5.0 Chloride 102 mmol/L 101-111 Co2 Carbon Dioxide 32 mmol/L 22-32 Anion Gap 4 mmol/L 2-11 Glucose 158 mg/dL High 70-100 Blood Urea Nitrogen 18 mg/dL 6-24 Creatinine 1.31 mg/dL High 0.67-1.17 BUN/Creatinine Ratio 13.7 8-20 Calcium 8.3 mg/dL Low 8.6-10.3 Egfr Non- 52.6 >60 Egfr 67.7 >60 5 Inr/Protime 07/11/2016 Inr 0.94 0.89-1.11 CBC Auto Diff 07/11/2016 White Blood Count [...] 0-2 Nucleated Red Blood Cells % 0 Cath Panel 07/11/2016 Partial Thrombo Time PTT [...] 5 Kidney failure <15 (or dialysis) 2 >100 to <200 pg/mL: likely compensated congestive heart failure (CHF) 200 to 400 pg/mL: likely moderate CHF >400 pg/mL: likely moderate to severe CHF 3 Because ethnic data is not always readily [...] 15-29 5 Kidney failure <15 (or dialysis) 4 Because ethnic data is not always readily [...] 15-29 5 Kidney failure <15 (or dialysis) 5 Because ethnic data is not always readily [...] dialysis) Procedures Date CPT Code Description Status 12/20/2017 98075 EKG Tracing & Interpretation Completed 04/05/2017 70111 Echocardiogram, Limited Study Completed 11/30/2016 96270 EKG Tracing & Interpretation Completed 09/18/2016 36585 Holter Monitor Review (24 hr)dr colvin & interp only Completed 09/14/2016 16609 ECG Monitor/Recording W/Visual Superimposition Scanning Completed 09/11/2016 44986 ECHO Transthoracic, Real-Time 2D With Doppler And Color Completed Flow 09/04/2016 35552 EKG Tracing & Interpretation Completed 07/12/2016 72093 RT & lt Cath W/Injx HRT Art&L Ventr Img S&I Completed 07/06/2016 62296 EKG Tracing & Interpretation Completed 06/14/2016 99596 ECHO Transthorasic Realtime 2D W Doppler & Color Flow Completed Hosp Encounters Type Date Location Provider CPT E/M Dx Office Visit 03/05/2017 11:30a [facility] KEILA Gonzalez 35321 I42.9 R09.02 E87.6 Office Visit 12/11/2016 9:00a [facility] KEILA Gonzalez [id number] I42.9 R09.02 Office Visit 11/30/2016 3:45p [facility] Suzanna Lopez M.D. 93315 I42.8 [facility] Z51.81 Office Visit 11/16/2016 9:00a [facility] Suzanna Lopez M.D. 87011 I42.8 [facility] AT [facility] I50.42 F51.5 I25.10 Office Visit 10/09/2016 1:45p [facility] Suzanna Lopez M.D. 94795 I42.9 [facility] I49.3 Office Visit 09/04/2016 9:00a [facility] KEILA Gonzalez 66308 I25.10 I42.9 R00.2 Office Visit 08/14/2016 10:00a [facility] KEILA Gonzalez 74253 I42.9 I25.10 Office Visit 08/07/2016 3:45p [facility] Suzanna Lopez M.D. 79135 I42.9 [facility] I50.42 I25.10 Office Visit 07/18/2016 11:20a [facility] Tae Harman, 17255 I42.9 [facility] AT [facility] , FACC, FSCAI Office Visit 07/06/2016 9:40a [facility] Suzanna Lopez M.D. 03450 I42.9 [facility] AT [facility] I50.42 N18.9 R06.02 Office Visit 06/16/2016 2:09p [facility],evan Sher, 49355 I50.9 Hospitalists M.D. N18.3 Office Visit 06/15/2016 2:09p [facility], Suze Dee, 19532 I50.9 Hospitalists Lg N18.3 Office Visit 06/14/2016 2:08p [facility], Suzefabiano Price, 81238 I50.9 Hospitalists Lg N18.3 Office Visit 06/13/2016 2:08p [facility], Suze Price, 29871 I50.9 Hospitalists Lg N17.9 Plan of Care 12/20/2017 - Szuanna Lopez M.D.I42.8 Other cardiomyopathiesNew Orders: EchocardiogramFollow up:after testing , LIEUTENANT COLONEL or MDI50.42 Chronic combined systolic and diastolic hrt failRecommendations:Continue current medications.I25.10 [place] heart disease of [place] coronary artery w/o ang pctrsComments:Your ECG is stable.J90 Pleural effusion, not elsewhere classifiedComments:I still hear fluid around your lungs on the right.I34.0 Nonrheumatic mitral (valve) insufficiencyNew Orders:EchocardiogramComments: Murmurs heard as expected.I36.1 Nonrheumatic tricuspid (valve) insufficiencyNew Orders:Echocardiogram
[2018-01-17] MEDS ORDERED: NS 0.9% 1000 ML* 1,000 ML IV ONE ×2 (03:55→04:37)
[2018-01-17] MEDS ORDERED: Albuterol/Ipratropium NEB.SOL* Albuterol 2.5 MG/Ipratropium 0.5 MG 3 ML INH ONE (03:55)
--- NOTE | 2018-01-17 04:02 | ED ---
Respiratory - HPI Summary HPI Summary: This is verona Valdovinos documenting for attending Denita Armstrong MD. This patient is an 82 year old M BIBA to ED with a chief complaint of difficulty breathing since [employer]. En route, the patient was placed on non- rebreather which helped relieve the sx. Per EMS, the patient was found to have woken up with difficulty breathing. He lives with his at home and she was the one who called EMS. The patient rates the pain 2/10 in severity. Symptoms aggravated by nothing. Symptoms alleviated by treatment en route. Patient reports cough (only this morning). Patient denies fever. EMS reports the patient is currently going through a series of tests for lung biopsy due to findings of a spot on his L lung. - History of Current Complaint Stated Complaint: SOB Time Seen by Provider: 01/17/18 03:42 Hx Obtained From: Patient Onset/Duration: Sudden Onset, Lasting Minutes - [employer]ACHUTE[employer] D[employer] OFF[employer]ER, Resolved - due to treatment by EMS en route Timing: Constant Current Severity: Mild Pain Intensity: 2 Character: Cough (Nonproductive) Aggravating Factor(s): Nothing Alleviating Factor(s): Other - non-rebreather given by EMS en route to ED - Allergy/Home Medications Allergies/Adverse Reactions: Allergies Allergy/AdvReac Type Severity Reaction Status Date / Time No Known Allergies Allergy Verified 01/14/18 13:12 Home Medications: Home Medications ALPRAZolam [Alprazolam] 0.25 mg PO TID PRN 01/17/18 [History Confirmed 01/17/18] oxyCODONE ORAL.SOLN* [Oxycodone ORAL.SOLN 5 mg/5 ml *] 10 mg PO Q4H PRN [History Confirmed 01/17/18] PMH/Surg Hx/FS Hx/Imm Hx Endocrine/Hematology History: Denies: Hx Diabetes Cardiovascular History: Reports: Hx Congestive Heart Failure - 05/2016, Hx Coronary Artery Disease Denies: Hx Hypertension, Hx Pacemaker/ICD History: Denies: Hx Renal Disease Sensory History: Reports: Hx Cataracts - BOTH, Hx Contacts or Glasses - reading Denies: Hx Hearing Aid Opthamlomology History: Reports: Hx Cataracts - BOTH, Hx Contacts or Glasses - reading Psychiatric History: Reports: Hx Substance Abuse - alcohol Denies: Hx Panic Disorder - Cancer History Cancer Type, Location and Year: LUNG - Surgical History Surgery Procedure, Year, and Place: TONSILS AGE 7 Hx Anesthesia Reactions: No Infectious Disease History: Denies: Traveled Outside the [place] in Last 30 Days - Family History Known Family History: Positive: Cardiac Disease, Other - stroke Negative: Hypertension - hypotension, Diabetes - Social History Alcohol Use: None Alcohol Amount: QUIT DRINKING IN 1991 Substance Use Type: Reports: None Smoking Status (MU): Former Smoker Type: Cigarettes Amount Used/How Often: smoked for 40 years 4-5 years Review of Systems Negative: Fever Positive: Cough - only this morning, Other - woke up with difficulty breathing All Other Systems Reviewed And Are Negative: Yes Physical Exam - Summary Physical Exam Summary: VITAL SIGNS: Reviewed. GENERAL: Patient is a well-developed and nourished MALE who is lying comfortable in the stretcher. Patient is not in any acute respiratory distress. HEAD AND FACE: No signs of trauma. No ecchymosis, hematomas or skull depressions. No sinus tenderness. EYES: PERRLA, EOMI x 2, No injected conjunctiva, no nystagmus. EARS: Hearing grossly intact. Ear canals and tympanic membranes are within normal limits. MOUTH: Oropharynx within normal limits. NECK: Supple, trachea is midline, no adenopathy, no JVD, no carotid bruit, no c- spine tenderness, neck with full ROM. CHEST: Symmetric, no tenderness at palpation LUNGS: Decreased breath sounds bilaterally. Rales over the L base. CVS: Regular rate and rhythm, S1 and S2 present, no murmurs or gallops appreciated. ABDOMEN: Soft, non-tender. No signs of distention. No rebound no guarding, and no masses palpated. Bowel sounds are normal. EXTREMITIES: FROM in all major joints, no edema, no cyanosis or clubbing. NEURO: Alert and oriented x 3. No acute neurological deficits. Speech is normal and follows commands. SKIN: Dry and warm Triage Information Reviewed: Yes Vital Signs On Initial Exam: Initial Vitals Temp Pulse Resp BP Pulse Ox 98.0 F 103 20 149/87 94 01/17/18 03:45 01/17/18 03:45 01/17/18 03:45 01/17/18 03:45 01/17/18 03:45 Vital Signs Reviewed: Yes Diagnostics - Laboratory Result Diagrams: 01/17/18 04:22 Lab Statement: Any lab studies that have been ordered have been reviewed, and results considered in the medical decision making process. - Radiology CXR Radiology Interpretation Completed By: ED Physician - Diffuse infiltrate over the L side, Small basal infiltrate on the R. Pending radiologist official interpretation. - EKG 0406 Cardiac Rate: Tachycardia - 98 BPM EKG Rhythm: Sinus Tachycardia EKG Interpretation: PVCs Re-Evaluation - Re-Evaluation First Eval Re-Evaluation Time: 04:36 Comment: Discussed results and plan for admission. Disposition - Course Assessment/Plan: This patient is a n 82 yo M c/o difficulty breathing and a cough earlier this morning. On exam, he has rales in the L lung. He was hypoxic. The CXR is consistent with PNA in the L lung. He will be admitted to be given further treatment with IV abx and hydration. Patient understands and agrees. - Differential Dx - Cardiopulmonary Differential Diagnoses - Cardiopulmonary: Other - PNA - Diagnoses Provider Diagnoses: Pneumonia - Physician Notifications Discussed Care Of Patient With: Suze Price Time Discussed With Above Provider: 04:40 Instructed by Provider To: Other - Consulted Dr. Price who accepts the patient for admission. Discharge - Sign-Out/Discharge Documenting (check all that apply): Patient Departure - Discharge Plan Condition: Stable Disposition: ADMITTED TO [facility] Referrals: Alexis Garduno MD [Primary Care Provider] -
[2018-01-17] MEDS ORDERED: Levofloxacin 750 MG IVPREMIX(* 750 MG/150 ML BAG IVPB ONE (04:33)
[2018-01-17 04:34] LABS: ABS Basophils 0 10^3/ul (0-0.2); ABS Eosinophils 0.1 10^3/ul (0-0.6); ABS Lymphocytes 0.6 10^3/ul (1.0-4.8); ABS Monocytes 0.5 10^3/ul (0-0.8); ABS Neutrophils 11.6 10^3/ul (1.5-7.7); ABS Nucleated RBC 0 10^3/ul; Eosinophil % 0.4 % (0-6); Hematocrit 41 % (42-52); Hemoglobin 13.8 g/dl (14.0-18.0); Lymphocyte % 4.3 % (25-47); Mean Corpuscular HGB Conc 34 g/dl (31-36); Mean Corpuscular Hemoglobin 33 pg (27-31); Mean Corpuscular Volume 97 fL (80-94); Mean Platelet Volume 8.3 um3 (7.4-10.4); Nucleated Red Blood Cells % 0; Platelet Count 203 10^3/ul (150-450); Red Blood Count 4.22 10^6/ul (4.00-5.40); Red Cell Distribution Width 15 % (10.5-15); White Blood Count 12.8 10^3/ul (3.5-10.8)
[2018-01-17] MEDS: Albuterol 2.5 MG/3 ML NEB.SOL* (0.083%) INH SCH ×2 (04:35→05:00)
[2018-01-17 04:42] LABS: INR 1.02 (0.77-1.02)
[2018-01-17 04:52] LABS: EGFR Non-African American 44.1 (>60)
[2018-01-17] MEDS ORDERED: Acetaminophen TAB* 325 MG PO PRN (05:48)
[2018-01-17] MEDS ORDERED: ALPRAZolam TAB* 0.25 MG PO PRN (05:48)
[2018-01-17] MEDS ORDERED: NS 0.9% 500 ML* 500 ML IV ONE (05:49)
[2018-01-17] MEDS ORDERED: PROCHLORPERAZINE INJ 5 MG/ML 2 ML VIAL IV PRN (05:50)
[2018-01-17] MEDS ORDERED: NS 0.9% 1000 ML* 1,000 ML IV SCH (06:00)
[2018-01-17] MEDS ORDERED: Dextrose 50% Syringe 50 ML* 25 GM/50 ML SYRINGE IV PUSH PRN (06:35)
[2018-01-17] MEDS ORDERED: Insulin LISPRO* 1 UNITS UNIT SUBCUT SCH (07:30)
--- NOTE | 2018-01-17 07:46 | RAD ---
Indication: Shortness of breath. Single frontal view of the chest performed at 0416 hours was reviewed. Comparison is made with previous exam dated January 15, 2018. No mediastinal shift is noted. Tortuous descending aorta is noted. Left lung field demonstrates interstitial and alveolar infiltrate consistent with left lung pneumonia. There may be early infiltrate in the right base well. IMPRESSION: INTERSTITIAL AND ALVEOLAR CONSOLIDATION IN THE LEFT LUNG. MINIMAL INFILTRATE IN THE RIGHT LUNG BASE. FINDINGS ARE SUGGESTIVE OF PNEUMONIA. R0
[2018-01-17] MEDS: Heparin VIAL(*) 5000 UNITS/ML VIAL (FIVE THOUSAND) SUBCUT SCH ×3 (08:44→22:04)
[2018-01-17] MEDS ORDERED: Potassium Chlor TAB* 20 MEQ TAB.ER PO SCH (09:00)
[2018-01-17] MEDS: Carvedilol TAB* 6.25 MG PO SCH ×2 (11:02→22:00)
[2018-01-17] MEDS: Aspirin EC TAB* 81 MG TAB.EC PO SCH (11:02)
[2018-01-17] MEDS: PTO:Sacubitril/Valsartan 24/26(NF) 1 TAB PO SCH ×2 (11:04→22:04)
--- NOTE | 2018-01-17 11:22 | PN ---
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 He is feeling much better this am. He received appropriate fluid resuscitation and oxygen support and started on Levaquin. He has a significant L sided infiltrate , remains afebrile. He reports that his symptoms came on rather quickly. He was feeling somewhat achy yesterday and awoke suddenly in the night with SOB and cough. O2 sat on RA in the ER was 78% and he was hypotensive. He developed a small pneumothorax following a lung biopsy earlier this week that confirmed the diagnosis of lung CA. Pneumothorax appears improved.] Objective: [ Laboratory Results - last 24 hr 01/17/18 01/17/18 01/17/18 04:22 04:22 04:22 WBC 12.8 H RBC 4.22 Hgb 13.8 L Hct 41 L MCV 97 H MCH 33 H MCHC 34 RDW 15 Plt Count 203 MPV 8.3 Neut % (Auto) 90.9 H Lymph % (Auto) 4.3 L [place] % (Auto) 4.2 Eos % (Auto) 0.4 Baso % (Auto) 0.2 Absolute Neuts (auto) 11.6 H Absolute Lymphs (auto) 0.6 L Absolute Monos (auto) 0.5 Absolute Eos (auto) 0.1 Absolute Basos (auto) 0 Absolute Nucleated RBC 0 Nucleated RBC % 0 INR (Anticoag Therapy) 1.02 APTT 27.4 Sodium 135 Potassium 4.9 Chloride 102 Carbon Dioxide 25 Anion Gap 8 BUN 18 Creatinine 1.52 H Est GFR ( Amer) 53.4 Est GFR (Non-Af Amer) 44.1 BUN/Creatinine Ratio 11.8 Glucose 154 H Lactic Acid Calcium 9.0 Total Bilirubin 1.30 H AST 14 ALT 5 L Alkaline Phosphatase 48 Total Creatine Kinase 33 Troponin I 0.01 C-Reactive Protein 97.96 H B-Natriuretic Peptide Total Protein 6.2 L Albumin 3.1 L Globulin 3.1 Albumin/Globulin Ratio 1.0 01/17/18 01/17/18 04:22 04:22 WBC RBC Hgb Hct MCV MCH MCHC RDW Plt Count MPV Neut % (Auto) Lymph % (Auto) [place] % (Auto) Eos % (Auto) Baso % (Auto) Absolute Neuts (auto) Absolute Lymphs (auto) Absolute Monos (auto) Absolute Eos (auto) Absolute Basos (auto) Absolute Nucleated RBC Nucleated RBC % INR (Anticoag Therapy) APTT Sodium Potassium Chloride Carbon Dioxide Anion Gap BUN Creatinine Est GFR ( Amer) Est GFR (Non-Af Amer) BUN/Creatinine Ratio Glucose Lactic Acid 2.5 H* Calcium Total Bilirubin AST ALT Alkaline Phosphatase Total Creatine Kinase Troponin I C-Reactive Protein B-Natriuretic Peptide 183 H Total Protein Albumin Globulin Albumin/Globulin Ratio Acetaminophen (Tylenol Tab*) 650 mg PO Q4HR PRN PRN Reason: PAIN Alprazolam (Xanax Tab*) 0.25 mg PO TID PRN PRN Reason: ANXIETY Aspirin (Aspirin Ec Tab*) 81 mg PO QAM [facility] Last Admin: 01/17/18 11:02 Dose: 81 mg Carvedilol (Coreg Tab*) 12.5 mg PO BID [facility] Last Admin: 01/17/18 11:02 Dose: 12.5 mg Dextrose (D50w Syringe 50 Ml*) 12.5 gm IV PUSH .FOR FS < 60 - SS PRN PRN Reason: FS < 60 Heparin Sodium (Porcine) (Heparin Vial(*)) 5,000 units SUBCUT Q8HR [facility] Last Admin: 01/17/18 08:44 Dose: Not Given Levofloxacin/Dextrose (Levaquin 750 Mg Ivpremix(*)) 750 mg in 150 mls @ 100 mls /hr IVPB Q48H [facility] Oxycodone HCl (Oxycodone Oral.Soln*) 10 mg PO Q4H PRN PRN Reason: PAIN Potassium Chloride (Klor Con Er Tab*) 20 meq PO QAM [facility] Last Admin: 01/17/18 11:02 Dose: 20 meq Prochlorperazine Edisylate (Compazine Inj*) 5 mg IV Q6H PRN PRN Reason: NAUSEA/VOMITING Sacubitril/Valsartan (Entresto (Nf)) 1 tab PO BID [facility] Last Admin: 01/17/18 11:04 Dose: Not Given Vital Signs Temp Pulse Resp BP Pulse Ox 99.2 F 82 18 142/83 91 01/17/18 07:20 01/17/18 11:00 01/17/18 11:00 01/17/18 11:00 01/17/18 11:00 Exam: Gen: 82 yo male who appears relatively well and in NAD. Accompanied by his son in ICU HEENT: MMM Resp: few crackles in L lung stanton, R lung stanton CTA Abd: soft, nonTTP Ext: No edema Assessment: [82 yo male with CHF, CKD and new diagnosis of metastatic lung CA who presented with acute respiratory distress, admitted to ICU for sepsis secondary to PNA.] Plan: [1. Sepsis secondary to PNA - sepsis improved - cont Levaquin - appears euvolemic at this time - repeat lactic acid, stop IVF if improved 2. CKD - renal function appears near baseline - cont to monitor Cr 3. CHF - EF 40-45% per echo last month - cont home medications - monitor fluid status closely, appears euvolemic at this time 4. NSCLC - biopsy 01/14/18 confirms moderately differentiated adenocarcinoma which is likely metastatic with a lytic lesion present at C6 - he has not initiated therapy for this - will follow up with Dr Echevarria following discharge regarding treatment planning Dispo: appears well enough to transfer to medical floor, no longer requires ICU level care]
--- NOTE | 2018-01-17 11:54 | HP ---
CC: Dr. Garduno; Dr. Echevarria HISTORY AND PHYSICAL: DATE OF ADMISSION: 01/17/18 TIME OF EVALUATION: 5:30 a.m. PRIMARY CARE PROVIDER: Dr. Garduno. ONCOLOGIST: Dr. Echevarria. CHIEF COMPLAINT: Shortness of breath. HISTORY OF PRESENT ILLNESS: Mr. Leon is an 82-year-old male with a past medical history of nonisch emic cardiomyopathy, COPD, CKD, type 2 diabetes, macular degeneration, recently diagnosed with lung c ancer that presented to the emergency room with complaints of shortness of breath. The patient states that he developed neck pain about 2 months ago. The pain was worse with turning h is head and radiated down to his left arm. He saw his PCP, had a CAT scan done on 12/27/17, that isabel wed a spiculated left upper lung mass and also a possible C6 lytic lesion suggestive of metastasis. He was seen by Dr. Echevarria as outpatient and his impression was that the patient likely had metastatic l elan cancer and referred him for a lung biopsy that was performed by Dr. Kennedy on 01/14/18 under ultr asound guidance. Pathology report showed pulmonary adenocarcinoma, moderately differentiated. The p atient states that he was feeling well after the biopsy and he had followup chest x-ray done on 01/15 that showed a small left-sided pneumothorax unchanged from the x-ray from 01/14/18. The patient states last night, he started to have shortness of breath associated with cough and it is described in the emergency room, his saturation had dropped to 78% on room air and he is now on 8 L OxyMask. He had some chills, but denies fever. There is no complaint of chest pain, palpitations, nausea, vomiting, diarrhea, or urinary complaints. PAST MEDICAL HISTORY: 1. Nonischemic cardiomyopathy with ejection fraction of 45%. 2. COPD. 3. CKD, stage 3. 4. Type 2 diabetes. 5. Macular degeneration. 6. Recent diagnosis of metastatic lung adenocarcinoma with C6 lytic lesion. PAST SURGICAL HISTORY: Status post tonsillectomy. FAMILY HISTORY: Paternal aunt had breast cancer, lung cancer. Brother had pancreatic cancer. Mothe r, colon cancer. SOCIAL HISTORY: The patient has a [id number] smoking history, quit in the , was a heavy drinke r until 1991, but also quit. 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 He is and octavio rogate decision maker is his , Amanda Leon, phone number is [phone]. REVIEW OF SYSTEMS: A 14-point review of systems was performed, and all the pertinent negative and po sitive findings are in the HPI. PHYSICAL EXAMINATION GENERAL: The patient is an elderly gentleman sitting up in the ED stretcher, in no acute distress. VITAL SIGNS: Temperature 98.0, heart rate is 91, respiratory rate is 24, oxygen saturation is 91% on 8 L nasal cannula, blood pressure is 76/37. HEENT: Pupils are equal. Moist mucous membranes. CHEST: Breath sounds present bilaterally with diffuse crackles on the left. CVS: Normal S1, S2. Regular rate and rhythm. ABDOMEN: Soft, bowel sounds are present. EXTREMITIES: No edema. NEURO: He is alert and oriented x3. Able to move all 4 extremities. DIAGNOSTIC STUDIES/LAB DATA: The patient had a CBC that showed a WBC of 12.8, hemoglobin of 13.8, h ematocrit of 41, platelets of 203 with 90% neutrophils. INR is 1.02. Chemistry showed sodium 135, p otassium 4.9, chloride 102, bicarb 25, BUN of 18, creatinine of 1.5, glucose of 154, lactic acid of 2 .5, calcium 9.0. LFTs showed a total bilirubin of 1.3, AST of 14, ALT of 5, alk phos of 48. CRP is 97.9. Chest x-ray showed an extensive infiltrate to whole left lung. I see a small apical pneumothorax anselmo t appears to be improved from prior, but the infiltrate is new. EKG done 01/17/18 at 4 a.m. shows sinus rhythm 98 beats per minute with multiple PVCs. No significan t change when compared to his prior EKG from May 2016. ASSESSMENT AND PLAN: Mr. Leon is an 82-year-old with a past medical history of nonischemic cardiom yopathy with ejection fraction of 45%. Recently diagnosed metastatic lung adenocarcinoma; chronic ob structive pulmonary disease; chronic kidney disease, stage 3; type 2 diabetes; macular degeneration ( legally blind), who presents to the emergency room with complaints of shortness of breath, after a re cent lung biopsy found to have an extensive infiltrate of his left lung compatible with healthcare-as sociated pneumonia. 1. Sepsis. The patient's presentation is compatible with sepsis with tachycardia and tachypnea and source is healthcare-associated pneumonia. 2. Acute hypoxemic respiratory failure. The patient developed a [id number]-[id number] sized pneumothora x after his biopsy that seemed to be improving, but now he develops this extensive infiltrate, sugges tive of healthcare-associated pneumonia. The patient will be admitted to the intensive care unit as h is blood pressure is under lower side and we are going to continue fluid resuscitation. At this poin t, he is not in septic shock, but if he does not respond appropriately to fluid resuscitation, he may require pressors. He will be continued on levofloxacin, blood cultures were sent. We are going to check pneumococcal and legionella antigen. 3. Type 2 diabetes. We are going to check his fingersticks a.c. and h.s. and cover with lispro slid ing scale. 4. Nonischemic cardiomyopathy. He appears to be stable from a cardiac point of view. We are going to continue his carvedilol and Entresto as his blood pressure allows 5. DVT prophylaxis. The patient has a score of 5 on the DVT Prophylaxis Risk Assessment Guide and h e will be started on subcutaneous heparin and SCDs. 6. Code status was discussed with the patient, he wishes to be a do not resuscitate, but he will agr eeable with a trial of BiPAP or intubation if needed for respiratory failure. TIME SPENT: Approximately 65 minutes was spent with this patient interview, medical records review, physical examination to complete the admission, more than half of the time was spent yrrk-yh-blaz wit h the patient and coordination of care. [id number]/[facility] #: [id number]
[2018-01-17] MEDS: oxyCODONE ORAL.SOLN* 5 MG/5 ML UDC PO PRN (12:01)
[2018-01-18] MEDS: Heparin VIAL(*) 5000 UNITS/ML VIAL (FIVE THOUSAND) SUBCUT SCH (05:49)
[2018-01-18 06:29] LABS: ABS Basophils 0 10^3/ul (0-0.2); ABS Eosinophils 0.1 10^3/ul (0-0.6); ABS Lymphocytes 1.2 10^3/ul (1.0-4.8); ABS Monocytes 0.9 10^3/ul (0-0.8); ABS Nucleated RBC 0 10^3/ul; Eosinophil % 1.2 % (0-6); Hematocrit 37 % (42-52); Hemoglobin 12.3 g/dl (14.0-18.0); Lymphocyte % 11.8 % (25-47); Mean Corpuscular HGB Conc 34 g/dl (31-36); Mean Corpuscular Hemoglobin 33 pg (27-31); Mean Corpuscular Volume 98 fL (80-94); Mean Platelet Volume 8.1 um3 (7.4-10.4); Nucleated Red Blood Cells % 0.1; Platelet Count 166 10^3/ul (150-450); Red Blood Count 3.75 10^6/ul (4.00-5.40); Red Cell Distribution Width 15 % (10.5-15); White Blood Count 10.2 10^3/ul (3.5-10.8)
[2018-01-18 06:49] LABS: EGFR Non-African American 51.5 (>60)
[2018-01-18] MEDS: Carvedilol TAB* 6.25 MG PO SCH (08:31)
[2018-01-18] MEDS: Aspirin EC TAB* 81 MG TAB.EC PO SCH (08:31)
[2018-01-18] MEDS: PTO:Sacubitril/Valsartan 24/26(NF) 1 TAB PO SCH (08:32)
[2018-01-18] MEDS ORDERED: Potassium Chloride LIQUID* 20 MEQ PACKET PO SCH (09:00)
--- NOTE | 2018-01-18 09:31 | PN ---
Progress Note - Progress Note Date of Service: 01/18/18 SOAP: Subjective: []Much better today. Breathing was fine all day yesterday. No chest pain. No fevers. No cough. Acetaminophen (Tylenol Tab*) 650 mg PO Q4HR PRN PRN Reason: PAIN Alprazolam (Xanax Tab*) 0.25 mg PO TID PRN PRN Reason: ANXIETY Aspirin (Aspirin Ec Tab*) 81 mg PO QAM [facility] Last Admin: 01/18/18 08:31 Dose: 81 mg Carvedilol (Coreg Tab*) 12.5 mg PO BID [facility] Last Admin: 01/18/18 08:31 Dose: 12.5 mg Dextrose (D50w Syringe 50 Ml*) 12.5 gm IV PUSH .FOR FS < 60 - SS PRN PRN Reason: FS < 60 Heparin Sodium (Porcine) (Heparin Vial(*)) 5,000 units SUBCUT Q8HR [facility] Last Admin: 01/18/18 05:49 Dose: 5,000 units Levofloxacin/Dextrose (Levaquin 750 Mg Ivpremix(*)) 750 mg in 150 mls @ 100 mls /hr IVPB Q48H [facility] Oxycodone HCl (Oxycodone Oral.Soln*) 10 mg PO Q4H PRN PRN Reason: PAIN Last Admin: 01/17/18 12:01 Dose: 10 mg Potassium Chloride (Klor-Con Liquid*) 20 meq PO QAM [facility] Prochlorperazine Edisylate (Compazine Inj*) 5 mg IV Q6H PRN PRN Reason: NAUSEA/VOMITING Sacubitril/Valsartan (Entresto (Nf)) 1 tab PO BID [facility] Last Admin: 01/18/18 08:32 Dose: 1 tab Objective: [] Vital Signs Temp Pulse Resp BP Pulse Ox 97.6 F 75 18 117/53 97 01/18/18 07:22 01/18/18 07:22 01/18/18 07:22 01/18/18 07:22 01/18/18 07:22 Exam: Gen: 82 yo male who appears relatively well and in NAD. HEENT: MMM Resp: Now CTA BL Abd: soft, nonTTP Ext: No edema Assessment: [82 yo male with CHF, CKD and new diagnosis of metastatic lung CA who presented with acute respiratory distress, admitted to ICU for sepsis secondary to PNA. He has improved rapidly and today breathing close to baseline. Plan: [1. Sepsis secondary to PNA or re-expansion edema - sepsis resolved - cont Levaquin and plan 10 day course - No IVF 2. CKD - renal function appears near baseline - cont to monitor Cr 3. CHF - EF 40-45% per echo last month - cont home medications - monitor fluid status closely, appears euvolemic at this time 4. NSCLC. Discussed diagnosis of stage IV lung cancer. - XRT to C-spine lesion - Molecular studies pending to plan therapy for cancer. 5. Hypoxia. Try walking on RA 6. Disp. D/c later today if can decrease O2
[2018-01-18] MEDS: oxyCODONE ORAL.SOLN* 5 MG/5 ML UDC PO PRN (10:56)
[2018-01-18 12:01] VITALS: BP 119/49
--- NOTE | 2018-01-18 20:59 | DS ---
DISCHARGE SUMMARY: DATE OF ADMISSION: 01/17/18 DATE OF DISCHARGE: 01/18/18 DISCHARGE DIAGNOSES: 1. Metastatic non-small cell lung cancer. 2. Pneumonia. 3. Post pneumothorax. 4. Chronic renal insufficiency. HOSPITAL COURSE: Please see history and physical for details of presentation. He had had pneumothorax approximately 9 days [address] after a CT-guided biopsy. It was recovering, but then he presented with acute shortness of breath, signs of sepsis and hypoxia. He initially spent a night in the ICU, but improved rapidly on IV antibiotics, Levaquin. Transferred to the floor yesterday and has continued to feel better and better. His breathing is back to baseline, he has no chest pain. No cough, no fevers, and no shortness of breath. Unclear whether or not he had a true pneumonia and sepsis or if he had a reinflation pulmonary edema and dehydration. Meeting today, we discussed the biopsy results of adenocarcinoma of the lung and that he has stage IV disease. I discussed that initial therapy is going to be radiation to the C-spine and while radiation is being done, we are going to have molecular studies sent on his cancer. It is not a curable cancer and we will have a lot more accurate prognosis as we get all the data. He has planned followup this coming Saturday and we will be able to discuss this cancer in more detail. DISCHARGE MEDICATIONS: 1. Acetaminophen 325 mg q.4 p.r.n. 2. Alprazolam 0.25 mg t.i.d. p.r.n. 3. Aspirin 81 mg daily. 4. Carvedilol 6.25 mg b.i.d. 5. Oxycodone 10 mg q.4 p.r.n. for pain. 6. Potassium 20 mEq q.a.m. 7. Entresto 24 mg/26 mg tablet b.i.d. 8. Levofloxacin 500 mg p.o. daily. FOLLOWUP: Followup will be with me on Saturday, the , and he is going to call over the weekend with any additional questions or concerns. [id number]/[facility] #: [id number] LENY
[2018-01-19] MEDS ORDERED: Levofloxacin 750 MG IVPREMIX(* 750 MG/150 ML BAG IVPB SCH (06:00)
== END 2018-01-18 12:10 | disposition home or self-care (01) | DRG 871 ==
LOC: ED 03:40 → ICU 06:07 → MED 13:50
PROVIDERS: ADMIT Internal Medicine; ATTEND Internal Medicine Hematology & Oncology
DX: A41.9 Sepsis, unspecified organism (principal); J18.9 Pneumonia, unspecified organism; J96.01 Acute respiratory failure with hypoxia; J44.0 Chronic obstructive pulmonary disease with (acute) lower respiratory infection; I42.8 Other cardiomyopathies; I13.0 Hypertensive heart and chronic kidney disease with heart failure and stage 1 through stage 4 chronic kidney disease, or unspecified chronic kidney disease; C34.90 Malignant neoplasm of unspecified part of unspecified bronchus or lung; J93.9 Pneumothorax, unspecified; C79.49 Secondary malignant neoplasm of other parts of nervous system; C79.51 Secondary malignant neoplasm of bone; I50.9 Heart failure, unspecified; I25.10 Atherosclerotic heart disease of native coronary artery without angina pectoris; H26.9 Unspecified cataract; E11.22 Type 2 diabetes mellitus with diabetic chronic kidney disease; H35.30 Unspecified macular degeneration; N18.3 Chronic kidney disease, stage 3 (moderate); Z80.1 Family history of malignant neoplasm of trachea, bronchus and lung; Z80.42 Family history of malignant neoplasm of prostate; Z80.3 Family history of malignant neoplasm of breast; Z82.49 Family history of ischemic heart disease and other diseases of the circulatory system; Z87.891 Personal history of nicotine dependence; Z82.3 Family history of stroke; Z80.0 Family history of malignant neoplasm of digestive organs; Z79.82 Long term (current) use of aspirin
CPT/HCPCS: 10022; 36415; 71045; 71046; 76942; 80048; 80053; 81445; 82550; 83605; 83880; 84484; 85025; 85610; 85730; 86140; 87040; 87641; 88172; 88173; 88177; 88305; 88341; 88342; 88360; 93005; 99233; 99285; A9270-GY; J1644; J3010

== ENCOUNTER 2018-02-24 09:26 | Inpatient (IN) | payer MEDICARE, BC ==
[2018-02-24] MEDS ORDERED: NS 0.9% 500 ML* 500 ML IV ONE (09:56)
--- NOTE | 2018-02-24 10:02 | ED ---
Complex/Multi-Sys Presentation - HPI Summary HPI Summary: Pt is an 82 y/o male who presents to the ED c/o fatigue. He has stage 4 lung cancer with metastasis to C6, and had a chemotherapy treatment on 02/14/18. Since then he c/o fatigue, weakness, malaise, and a sore throat due radiation. Pt has not been able to eat much due to the throat pain and having his teeth removed: he has eaten chicken broth, pudding, and water in the past few days. He also c/o right eye irritation, a sore on his right blancas, and a pressure sore on his buttocks. Pt denies any SOB or CP. As per , he is due to his next chemo treatment on 03/01, and will have his third round 3 weeks after that date. His last radiation was in late January. Pt was hypoxic so was placed on oxygen, and he denies being on oxygen at home. He denies any hx of blood clots or thyroid disease. Pt reports normal kidney function. - History Of Current Complaint Time Seen by Provider: 02/24/18 09:33 Hx Obtained From: Patient Onset/Duration: Gradual Onset, Lasting Days - 9, Still Present Timing: Constant Aggravating Factor(s): Chemotherapy, radiation Alleviating Factor(s): Drinking water helps with throat pain Associated Signs And Symptoms: Positive: Weakness, Decreased Oral Intake. Negative: SOB, Chest Pain Related History: Recent Illness - Lung CA - chemotherapy/radiation - Allergies/Home Medications Allergies/Adverse Reactions: Allergies Allergy/AdvReac Type Severity Reaction Status Date / Time No Known Allergies Allergy Verified 02/20/18 11:08 PMH/Surg Hx/FS Hx/Imm Hx Endocrine/Hematology History: Denies: Hx Blood Disorders - Blood clots, Hx Diabetes, Hx Thyroid Disease Cardiovascular History: Reports: Hx Congestive Heart Failure - 05/2016, Hx Coronary Artery Disease Denies: Hx Hypercholesterolemia, Hx Hypertension, Hx Pacemaker/ICD Respiratory History: Reports: Hx Lung Cancer - Stage 4 Denies: Hx Asthma, Hx Chronic Obstructive Pulmonary Disease (COPD) History: Denies: Hx Renal Disease Sensory History: Reports: Hx Cataracts, Hx Contacts or Glasses, Hx Legally Blind , Hx Macular Degeneration Denies: Hx Hearing Aid Opthamlomology History: Reports: Hx Cataracts, Hx Contacts or Glasses, Hx Legally Blind, Hx Macular Degeneration Psychiatric History: Reports: Hx Substance Abuse - alcohol Denies: Hx Panic Disorder - Cancer History Cancer Type, Location and Year: LUNG STAGE 4 - METS TO C4 - Surgical History Surgery Procedure, Year, and Place: TONSILS AGE 7 Hx Anesthesia Reactions: No Infectious Disease History: Unable to Obtain/Confirm Infectious Disease History: Denies: Hx of Known/Suspected MRSA, Traveled Outside the [place] in Last 30 Days - Family History Known Family History: Positive: Cardiac Disease, Other - CVA Negative: Hypertension - hypotension, Diabetes - Social History Alcohol Use: None Alcohol Amount: QUIT DRINKING IN 1991 Hx Substance Use: No Substance Use Type: Reports: None Hx Tobacco Use: Yes Smoking Status (MU): Former Smoker Type: Cigarettes Amount Used/How Often: smoked for 40 years 4-5 years Review of Systems Positive: Fatigue, Other - Malaise Positive: Other - Right eye irritation and redness Positive: Sore Throat - Due to radiation Negative: Chest Pain Negative: Shortness Of Breath Positive: Other - Abrasion with redness on right blancas Positive: Weakness All Other Systems Reviewed And Are Negative: Yes Physical Exam - Summary Physical Exam Summary: GENERAL: Patient is a well developed and nourished M who is lying comfortable in the stretcher. Patient is not in any acute respiratory distress. HEAD AND FACE: Normocephalic EYES: PERRLA, EOMI x 2. EARS: Hearing grossly intact. MOUTH: Oropharynx within normal limits. NECK: Supple, trachea is midline, no adenopathy, no JVD, no carotid bruit. CHEST: Symmetric, no tenderness at palpation LUNGS: Clear to auscultation bilaterally. No wheezing or crackles. CVS: Regular rate and rhythm, S1 and S2 present, no murmurs or gallops appreciated. ABDOMEN: Soft, non-tender. Bowel sounds are normal. No abdominal abnormal pulsations. EXTREMITIES: Full ROM in all major joints, no edema, no cyanosis or clubbing. NEURO: Alert and oriented x 3. No acute neurological deficits. Speech is normal and follows commands. SKIN: Dry and warm. Abrasion on right anterior blancas with surrounding erythema. Triage Information Reviewed: Yes Vital Signs On Initial Exam: Initial Vitals Temp Pulse Resp BP Pulse Ox 97.8 F 77 20 117/65 95 02/24/18 09:32 02/24/18 09:32 02/24/18 09:32 02/24/18 09:32 02/24/18 09:32 Vital Signs Reviewed: Yes Diagnostics - Vital Signs Vital Signs Temp Pulse Resp BP Pulse Ox 02/24/18 09:32 97.8 F 77 20 117/65 95 - Laboratory Result Diagrams: 02/25/18 06:11 02/24/18 10:06 Lab Statement: Any lab studies that have been ordered have been reviewed, and results considered in the medical decision making process. - CT Chest/Thorax CTA CT Interpretation: Positive (See Comments) - 1. NO EVIDENCE FOR PULMONARY EMBOLISM. 2. FINDINGS SUGGESTIVE OF CONGESTIVE HEART FAILURE. 3. LEFT UPPER LOBE MASS, UNCHANGED. 4. ENLARGED MEDIASTINAL AND LEFT HILAR LYMPH NODES UNCHANGED. ED physician reviewed radiology report. CT Interpretation Completed By: Radiologist - EKG 09:59 Cardiac Rate: NL - 74 bpm EKG Rhythm: Sinus Rhythm EKG Interpretation: Normal interval Complex Multi-Symp Course/Dx Course Of Treatment: Pt is an 82 y/o male who presents to the ED c/o fatigue. He has stage 4 lung cancer with metastasis to C6, and had a chemotherapy treatment on 02/14/18. Since then he c/o fatigue, weakness, malaise, and a sore throat due radiation. Pt has not been able to eat much due to the throat pain. He also c/o right eye irritation, a sore on his right blancas, and a pressure sore on his buttocks. Pt denies any SOB or CP. As per , he is due to his next chemo treatment on 03/01, and will have his third round 3 weeks after that date. His last radiation was in late January. Pt was hypoxic so was placed on oxygen, and he denies being on oxygen at home. A physical exam revealed Abrasion on right anterior blancas with surrounding erythema. A chest/thorax CTA revealed NO EVIDENCE FOR PULMONARY EMBOLISM. FINDINGS SUGGESTIVE OF CONGESTIVE HEART FAILURE. LEFT UPPER LOBE MASS, UNCHANGED. ENLARGED MEDIASTINAL AND LEFT HILAR LYMPH NODES UNCHANGED. An EKG was normal, with a rate of 74 bpm. Final dx are hypocalcemia, CHF, and neutropenia. Dr. Foley accepts pt for admission. Pt is agreeable with this plan. - Diagnoses Provider Diagnoses: Hypocalcemia, CHF (congestive heart failure), Neutropenia - Physician Notifications Discussed Care Of Patient With: Ana Maria Foley Time Discussed With Above Provider: 12:40 Instructed by Provider To: MD Will See In ED - Dr. Foley accepts pt for admission and will visit the pt in the ED. Discharge - Sign-Out/Discharge Documenting (check all that apply): Patient Departure - Admit - Discharge Plan Condition: Stable Disposition: ADMITTED TO [facility] - Billing Disposition and Condition Condition: STABLE Disposition: Admitted to [facility] - Attestation Statements Document Initiated by Scribe: Yes Documenting Scribe: Tanja Lau Provider For Whom Arabella is Documenting (Include Credential): Naveen Lara MD Scribe Attestation: Tanja Driver, scribed for Naveen Lara MD on 02/25/18 at 0717. Scribe Documentation Reviewed: Yes Provider Attestation: The documentation as recorded by the Tanja rhoades accurately reflects the service I personally performed and the decisions made by Naveen hussein MD
[2018-02-24 10:38] LABS: EGFR Non-African American 86.3 (>60)
[2018-02-24 11:00] LABS: Hematocrit 30 % (42-52); Hemoglobin 10.2 g/dl (14.0-18.0); Mean Corpuscular HGB Conc 35 g/dl (31-36); Mean Corpuscular Hemoglobin 32 pg (27-31); Mean Corpuscular Volume 94 fL (80-94); Red Blood Count 3.14 10^6/ul (4.00-5.40); Red Cell Distribution Width 14 % (10.5-15); White Blood Count 0.3 10^3/ul (3.5-10.8)
[2018-02-24 11:03] LABS: INR 1.28 (0.77-1.02)
[2018-02-24] MEDS ORDERED: Iohexol 350* (CONTRAST) 500 ML MDV IV ONE (11:25)
[2018-02-24] MEDS ORDERED: Calcium Gluconate INJ* 1 GM in NS 0.9% 100 ML* 100 ML IVPB ONE (11:27)
[2018-02-24 11:43] LABS: Mean Platelet Volume 8.2 um3 (7.4-10.4); Platelet Count 60 10^3/ul (150-450)
[2018-02-24 11:50] LABS: ABS Basophils 0 10^3/ul (0-0.2); ABS Neutrophils 0.1 10^3/ul (1.5-7.7); Monocytes % 1 % (0-7)
--- NOTE | 2018-02-24 12:32 | RAD ---
INDICATION: Shortness of breath. COMPARISON: Comparison is made with a prior PET/CT study from January 27, 2018. TECHNIQUE: A CT angiogram of the chest was performed with intravenous following intravenous injection of 67 ml of Omnipaque 350 nonionic contrast. Contiguous axial sections were obtained from the lung apices through the lung bases. Images were reconstructed in the coronal and sagittal planes. FINDINGS: PULMONARY ARTERIES: There is relatively homogeneous opacification of the pulmonary arteries. No intraluminal filling defect or pulmonary embolism is seen. LUNGS: There is a mass in the left upper lobe with irregular margins measuring 2.7 x 3.0 cm in size which appears unchanged significantly from the prior study taken in account differences in technique. There is moderate to severe emphysematous change. There is prominence of the interstitial markings and septal thickening raising the possibility of congestive heart failure. There are small bilateral pleural effusions. MEDIASTINUM: There are multiple enlarged mediastinal lymph nodes in the right paratracheal pretracheal and subcarinal regions measuring up to 1.4 cm in size which appears similar to the prior exam. There are enlarged left hilar lymph nodes measuring up to 2.0 cm in size. HEART: The heart is mildly enlarged. No pericardial effusion is present. There are coronary calcifications present. THORACIC AORTA: The thoracic aorta is normal in caliber. There is moderate calcific plaque present. ABDOMEN: No acute findings are seen on the visualized portion of the upper abdomen. There is a small to moderate size hiatal hernia. BONES: No significant focal osseous abnormality is seen. IMPRESSION: 1. NO EVIDENCE FOR PULMONARY EMBOLISM. 2. FINDINGS SUGGESTIVE OF CONGESTIVE HEART FAILURE. 3. LEFT UPPER LOBE MASS, UNCHANGED. 4. ENLARGED MEDIASTINAL AND LEFT HILAR LYMPH NODES UNCHANGED.
[2018-02-24] MEDS ORDERED: Furosemide IV* 10 MG/ML VIAL (40 MG) IV ONE (12:47)
[2018-02-24] MEDS ORDERED: NS 0.9% 100 ML* 0 ML ONE (13:05)
[2018-02-24] MEDS ORDERED: Dronabinol CAP* 2.5 MG PO PRN (13:32)
[2018-02-24] MEDS ORDERED: oxyCODONE ORAL.SOLN* 5 MG/5 ML UDC PO PRN (13:38)
[2018-02-24] MEDS ORDERED: Morphine ORAL.SOLN 10 mg* 2 MG/ML UDC 5 ml PO PRN (13:38)
[2018-02-24] MEDS ORDERED: Acetaminophen ADULT LIQ* 650 MG/20.3 ML UDC PO PRN (13:38)
[2018-02-24] MEDS ORDERED: NS 0.9% 1000 ML* 1,000 ML IV SCH (13:45)
--- NOTE | 2018-02-24 14:30 | ADMNOTE ---
Admission Chief Complaint: fatigue and poor PO intake History of Present Illness: 82 yo M w metastatic NSCLC sp cycle 1 of carboplatin/pemetrexed/pembrolizumab presenting with weakness and fatigue in setting of poor PO intake. Tunde completed RT to his C-spine (C6) 02/07 and started chemotherapy on 02/15. He has a known history of CHF, with recent EF of 40-45% in December. He reports that shortly after finishing RT he developed pain on swallowing and has had therefore very poor PO intake. His appetite was not great to begin with, but has deteriorated with difficultly swallowing. Since getting the chemotherapy he has been very fatigued and has been spending much of his time in bed or in a chair. He has developed a sacral decub and is using mepilex dressings. Yesterday his noticed significant redness around an escoriation on his right blancas. He denies fevers. He has had a cough since starting chemo, though this am coughed up something thick and has felt better since. He felt weak enough this am that he requested to come see us, but felt he was only able to get here via ambulance and so 911 was called. In the ER he was noted to be pancytopenic with mild hypoxia. He had a mildly elevated BNP, low Na and a CTA that did not show an acute infiltrate but was suggestive of some degree of CHF. His troponin was 0.05. He denies any chest pain. Again, his breathing is better now. Allergies/Medications Medication: Home Medications Medication Instructions Recorded Confirmed Type Aspirin EC TAB* [Ecotrin EC Low 81 mg PO QAM 06/21/17 02/24/18 History Dose 81 MG*] Carvedilol TAB* [Coreg TAB*] 12.5 mg PO BID 06/21/17 02/24/18 History oxyCODONE ORAL.SOLN* [Oxycodone 10 mg PO Q4H PRN 01/17/18 02/24/18 History ORAL.SOLN 5 mg/5 ml *] Acetaminophen ADULT LIQ* [Tylenol 500 mg PO Q4HR PRN 02/24/18 02/24/18 History ADULT LIQ*] Folic Acid TAB* [Folvite TAB*] 1 mg PO DAILY 02/24/18 02/24/18 History Morphine Sulfate [Morphine Sulfate 15 mg PO TID PRN 02/24/18 02/24/18 History Cr] Oxycodone HCl 10 ml PO Q4HR PRN MDD 60 ml 02/24/18 02/24/18 History Sacubitril/Valsartan (NF) 1 tab PO BID 02/24/18 02/24/18 History [Entresto (NF)] Allergies/Adverse Reactions: Allergies Allergy/AdvReac Type Severity Reaction Status Date / Time No Known Allergies Allergy Verified 02/20/18 11:08 History - Past Medical History Other History: CHF (John). CRI. COPD. DM. macular degeneration. tonsillectomy - Family History Other Family History: brother pancreatic CA. mother colon CA. sister cervical CA - Social History Hx Alcohol Use: No Hx Tobacco Use: Yes - 100 pack year, quit 1989 Marital Status: Review of Systems - Review of Systems Constitutional Symptoms: Positive: Weight Loss, Fatigue Dermatology: Positive: Other - lesion on right blancas, sacral decub Eyes: Positive: Other - macular degeneration Thyroid: Positive: Normal Pulmonary: Positive: Cough, Shortness of Breath Cardiology: Positive: Normal Gastroenterology: Positive: Anorexia, Difficulty Swallowing Endocrinology: Positive: Normal Hematologic/Lymphatic: Positive: Easy Brusing Neurology: Positive: Normal Psychiatry: Positive: Normal Physical Exam - Physical Exam Physical Examination: Vital Signs Temp Pulse Resp BP Pulse Ox 97.8 F 74 15 120/68 93 02/24/18 09:32 02/24/18 14:35 02/24/18 14:35 02/24/18 14:35 02/24/18 14:35 lying flat in bed in nad perr eomi op dry crackles bases bilaterally s1 s2 nl soft nt +bs no le edema A+O x 3, nonfocal neurological exam though did not ambulate ~3 cm area of dense redness on right blancas with central escar no abdoulaye Results - Lab Results Lab Results: 02/24/18 02/24/18 02/24/18 10:06 10:40 10:40 WBC 0.3 L RBC 3.14 L Hgb 10.2 L Hct 30 L MCV 94 MCH 32 H MCHC 35 RDW 14 Plt Count 60 L MPV 8.2 Neut % (Auto) Not Reportable Lymph % (Auto) Not Reportable Humphreys % (Auto) Not Reportable Eos % (Auto) Not Reportable Baso % (Auto) Not Reportable Absolute Neuts (auto) Not Reportable Absolute Lymphs (auto) Not Reportable Absolute Monos (auto) Not Reportable Absolute Eos (auto) Not Reportable Absolute Basos (auto) Not Reportable Absolute Nucleated RBC Not Reportable Neutrophils % 20 L Lymphocytes % 78 H Reactive Lymphs % 1 Monocytes % 1 Eosinophils % 0 Basophils % 0 Nucleated RBC % Not Reportable Abs Neuts (Manual) 0.1 L* Abs Lymphs (Manual) 0.2 L Abs Monocytes (Manual) 0 Absolute Eos (Manual) 0 Abs Basophils (Manual) 0 Normal RBC Morphology Normal INR (Anticoag Therapy) 1.28 H APTT 28.9 Sodium 131 L Potassium 4.1 Chloride 100 L Carbon Dioxide 19 L Anion Gap 12 H BUN 21 Creatinine 0.85 Est GFR ( Amer) 104.4 Est GFR (Non-Af Amer) 86.3 BUN/Creatinine Ratio 24.7 H Glucose 164 H Lactic Acid Calcium 6.9 L Total Bilirubin 1.70 H AST 21 ALT 10 Alkaline Phosphatase 55 CK-MB (CK-2) 1.4 Troponin I 0.05 H* B-Natriuretic Peptide Total Protein 5.2 L Albumin 2.6 L Globulin 2.6 Albumin/Globulin Ratio 1.0 TSH 1.27 Thyroxine (T4) 9.01 02/24/18 02/24/18 02/24/18 10:40 10:40 13:04 WBC RBC Hgb Hct MCV MCH MCHC RDW Plt Count MPV Neut % (Auto) Lymph % (Auto) Humphreys % (Auto) Eos % (Auto) Baso % (Auto) Absolute Neuts (auto) Absolute Lymphs (auto) Absolute Monos (auto) Absolute Eos (auto) Absolute Basos (auto) Absolute Nucleated RBC Neutrophils % Lymphocytes % Reactive Lymphs % Monocytes % Eosinophils % Basophils % Nucleated RBC % Abs Neuts (Manual) Abs Lymphs (Manual) Abs Monocytes (Manual) Absolute Eos (Manual) Abs Basophils (Manual) Normal RBC Morphology INR (Anticoag Therapy) APTT Sodium Potassium Chloride Carbon Dioxide Anion Gap BUN Creatinine Est GFR ( Amer) Est GFR (Non-Af Amer) BUN/Creatinine Ratio Glucose Lactic Acid 1.4 Calcium Total Bilirubin AST ALT Alkaline Phosphatase CK-MB (CK-2) Troponin I 0.04 H* B-Natriuretic Peptide 265 H Total Protein Albumin Globulin Albumin/Globulin Ratio TSH Thyroxine (T4) Assessment and Plan Impression: 82 yo M w metastatic NSCLC sp RT to c-spine very recently and cycle 1 of carbo/ pem/pem day 11 presenting with fatigue, poor PO intake, and pancytopenia. Despite elevated BNP he clinically appears dry on exam, which I suspect is related to his radiation esophagitis and poor PO intake. His fatigue is likely compounded by his chemotherapy related pancytopenia. Additionally, he has what appears to be the start of cellulitis on his right blancas, and in the setting of neutropenia will be covered despite lack of fever. -Admit to medicine Cellulitis: area outlined cefepime 2g IV q12 hrs culture if spikes hyponatremia: suspect hypovolemic hyponatremia very gentle hydration, with respect to CHF esophagitis: start magic mouthwash swallowing cont home pain meds anorexia: related to cancer and esophagitis start marinol, very low dose will apply for medical marijuana as an outpatient pancytopenia: chemotherapy related, hold off on port on Saturday systolic heart failure: despite elevated BNP and CTA findings, appears dry clinically will trend troponin, repeat echocardiogram and hydrate VERY gently cont coreg continue sacubitril-valsartan discussed code status at length, DNR/DNI hold off on DVT prophylaxis for today, if plts still >50 tomorrow will add heparin
[2018-02-24] MEDS: Cefepime 2 GM in Dextrose(*) 2 GM/50 ML BAG IV SCH (15:16)
[2018-02-24] MEDS: Magic M W2 Ben/Maal/Nyst/Lido* 240 ML MOUTHWASH (alt formulation) SWISH SWAL SCH ×2 (18:10→20:17)
[2018-02-24] MEDS: Carvedilol TAB* 6.25 MG PO SCH (20:16)
[2018-02-24] MEDS ORDERED: PTO:Sacubitril/Valsartan 24/26(NF) 1 TAB PO SCH (21:00)
--- NOTE | 2018-02-24 21:53 | ECHO ---
Patient: RON EGAN [facility] Rec#: [id number] : 1935 Date: 02/24/2018 Age: 82y Height: 175 cm / 68.9 in Weight: 75 kg / 165.3 lbs Sex: M BSA: 1.9 Room#: 402 Admit Date#: 02/24/2018 Type: Inpatient Referring: Sarah Griffin Reading: Duong Johnson MD [place] Department Supervisor: Lucila Boswell RN RDCS CC: Alexis Garduno MD Transthoracic Echocardiogram Indication: CHF BP: 119/61 HR: 81 Rhythm: NSR with PACs Findings History: Metastatic lung cancer, chemotherapy, CHF, DM, COPD, former smoker Technical Comments: The study quality is fair. The study is technically limited due to the patient's smoking history. Left Ventricle: The left ventricular chamber size is normal. Septal wall hypertrophy is observed. Global left ventricular wall motion and contractility are within normal limits. Left ventricular systolic function is at the lower limits of normal. The estimated ejection fraction is 50-55%. Abnormal left ventricular diastolic filling is observed, consistent with impaired relaxation. Left Atrium: The left atrial chamber size is normal. Right Ventricle: The right ventricular cavity size is normal. The right ventricular global systolic function is low normal. Right Atrium: The right atrial cavity size is normal. Aortic Valve: The aortic valve is trileaflet. The aortic valve leaflets are mildly thickened. There is aortic annular calcification. There is a trace of aortic regurgitation. There is no evidence of aortic stenosis. Mitral Valve: There is mitral annular calcification. The mitral valve leaflets are mildly thickened. There is mild to moderate mitral regurgitation. There is no evidence of mitral stenosis. Tricuspid Valve: The tricuspid valve leaflets are normal. There is mild to moderate tricuspid regurgitation. There is evidence of mild to moderate pulmonary hypertension. There is no tricuspid stenosis. Pulmonic Valve: The pulmonic valve appears normal. There is a trace pulmonic regurgitation. There is no pulmonic stenosis. Pericardium: There is no significant pericardial effusion. A pericardial fat pad is visualized. Aorta: There is no dilatation of the ascending aorta. The aortic arch is not well visualized. There is no dilation of the aortic root. Pulmonary Artery: The main pulmonary artery is not well visualized. Venous: The venous system is not well visualized. The inferior vena cava is not visualized. Conclusions Global left ventricular wall motion and contractility are within normal limits. Left ventricular systolic function is at the lower limits of normal. The estimated ejection fraction is 50-55%. The right ventricular global systolic function is low normal. The aortic valve leaflets are mildly thickened. There is a trace of aortic regurgitation. There is no evidence of aortic stenosis. There is mild to moderate mitral regurgitation. There is mild to moderate tricuspid regurgitation. There is evidence of mild to moderate pulmonary hypertension. There is no significant pericardial effusion. Measurements Name Value Normal Range RVDdMajor (2D) 3.5 cm (2.2 - 4.4) RAd ISD 4CH 4.9 cm (3.4 - 4.9) RA (A4C)W 4 cm (2.9 - 4.6) IVSd (2D) 1.2 cm (0.6 - 1) LVPWd (2D) 1 cm (0.6 - 1) LVIDd (2D) 4.2 cm (3.6 - 5.4) LVIDs (2D) 2.9 cm - LV FS (2D) 31 % (25 - 45) Aortic Annulus 2.2 cm (1.4 - 2.6) Ao root diameter (2D) 3.4 cm (2.1 - 3.5) Ascending Ao 3.3 cm (2.1 - 3.4) LA dimension (AP) 2D 2.6 cm (2.3 - 3.8) LAd ISD 4CH 4.9 cm (2.9 - 5.3) LA ISD 4CH W 3.4 cm (2.5 - 4.5) Name Value Normal Range LA ESV BP (A/L) index 19.5 ml/m2 - Name Value Normal Range MV E-wave Vmax 0.66 m/sec - MV deceleration time 282 msec - MV A-wave Vmax 0.98 m/sec - LV septal e' Vmax 0.05 m/sec - LV lateral e' Vmax 0.06 m/sec - LV E:e' septal ratio 13.2 ratio - LV E:e' lateral ratio 11 ratio - Name Value Normal Range AV Vmax 1.9 m/sec - AV VTI 32.9 cm - AV peak gradient 14 mmHg - AV mean gradient 7 mmHg - LVOT Vmax 0.81 m/sec - LVOT VTI 17.2 cm - LVOT peak gradient 3 mmHg - LVOT mean gradient 1 mmHg - Name Value Normal Range TR Vmax 2.9 m/sec - TR peak gradient 34 mmHg - RAP 8 mmHg - RVSP 42 mmHg - Name Value Normal Range PV Vmax 0.84 m/sec -
[2018-02-24] MEDS: PTO:Sacubitril/Valsartan 24/26(NF) 1 TAB PO SCH (23:33)
[2018-02-25] MEDS: Cefepime 2 GM in Dextrose(*) 2 GM/50 ML BAG IV SCH ×2 (02:25→15:02)
[2018-02-25 07:05] LABS: Hematocrit 26 % (42-52); Hemoglobin 8.9 g/dl (14.0-18.0); Mean Corpuscular HGB Conc 35 g/dl (31-36); Mean Corpuscular Hemoglobin 33 pg (27-31); Mean Corpuscular Volume 93 fL (80-94); Mean Platelet Volume 8.3 um3 (7.4-10.4); Platelet Count 5 10^3/ul (150-450); Red Blood Count 2.75 10^6/ul (4.00-5.40); Red Cell Distribution Width 13 % (10.5-15); White Blood Count 0.3 10^3/ul (3.5-10.8)
[2018-02-25 07:20] LABS: EGFR Non-African American 85.1 (>60)
[2018-02-25] MEDS ORDERED: Magnesium Sulfate 2 GM IV* 2 GM/50 ML BAG IVPB ONE (08:23)
--- NOTE | 2018-02-25 09:43 | PN ---
Progress Note - Progress Note Date of Service: 02/25/18 SOAP: Subjective: feels pretty "crummy" today. still with trouble swallowing. did feel relief from magic mouthwash last night but has not received any today yet. Objective: Vital Signs Temp Pulse Resp BP Pulse Ox 97.9 F 77 18 107/45 93 02/25/18 07:42 02/25/18 07:42 02/25/18 08:00 02/25/18 07:42 02/25/18 07:42 sitting up in nad perr eomi op dry dec bs bases s1 s2 nl soft nt +Bs trace le edema cellulitis r blancas well circumscribed, no worse, less warm Laboratory Results - last 24 hr 02/24/18 02/24/18 02/24/18 10:06 10:40 10:40 WBC 0.3 L RBC 3.14 L Hgb 10.2 L Hct 30 L MCV 94 MCH 32 H MCHC 35 RDW 14 Plt Count 60 L MPV 8.2 Neut % (Auto) Not Reportable Lymph % (Auto) Not Reportable Fleming % (Auto) Not Reportable Eos % (Auto) Not Reportable Baso % (Auto) Not Reportable Absolute Neuts (auto) Not Reportable Absolute Lymphs (auto) Not Reportable Absolute Monos (auto) Not Reportable Absolute Eos (auto) Not Reportable Absolute Basos (auto) Not Reportable Absolute Nucleated RBC Not Reportable Neutrophils % 20 L Lymphocytes % 78 H Reactive Lymphs % 1 Monocytes % 1 Eosinophils % 0 Basophils % 0 Nucleated RBC % Not Reportable Abs Neuts (Manual) 0.1 L* Abs Lymphs (Manual) 0.2 L Abs Monocytes (Manual) 0 Absolute Eos (Manual) 0 Abs Basophils (Manual) 0 Normal RBC Morphology Normal Hem Pathologist Commnt INR (Anticoag Therapy) 1.28 H APTT 28.9 Sodium 131 L Potassium 4.1 Chloride 100 L Carbon Dioxide 19 L Anion Gap 12 H BUN 21 Creatinine 0.85 Est GFR ( Amer) 104.4 Est GFR (Non-Af Amer) 86.3 BUN/Creatinine Ratio 24.7 H Glucose 164 H Lactic Acid Calcium 6.9 L Magnesium Total Bilirubin 1.70 H AST 21 ALT 10 Alkaline Phosphatase 55 CK-MB (CK-2) 1.4 Troponin I 0.05 H* B-Natriuretic Peptide Total Protein 5.2 L Albumin 2.6 L Globulin 2.6 Albumin/Globulin Ratio 1.0 TSH 1.27 Thyroxine (T4) 9.01 Group A Strep Rapid 02/24/18 02/24/18 02/24/18 10:40 10:40 13:04 WBC RBC Hgb Hct MCV MCH MCHC RDW Plt Count MPV Neut % (Auto) Lymph % (Auto) Fleming % (Auto) Eos % (Auto) Baso % (Auto) Absolute Neuts (auto) Absolute Lymphs (auto) Absolute Monos (auto) Absolute Eos (auto) Absolute Basos (auto) Absolute Nucleated RBC Neutrophils % Lymphocytes % Reactive Lymphs % Monocytes % Eosinophils % Basophils % Nucleated RBC % Abs Neuts (Manual) Abs Lymphs (Manual) Abs Monocytes (Manual) Absolute Eos (Manual) Abs Basophils (Manual) Normal RBC Morphology Hem Pathologist Commnt INR (Anticoag Therapy) APTT Sodium Potassium Chloride Carbon Dioxide Anion Gap BUN Creatinine Est GFR ( Amer) Est GFR (Non-Af Amer) BUN/Creatinine Ratio Glucose Lactic Acid 1.4 Calcium Magnesium Total Bilirubin AST ALT Alkaline Phosphatase CK-MB (CK-2) Troponin I 0.04 H* B-Natriuretic Peptide 265 H Total Protein Albumin Globulin Albumin/Globulin Ratio TSH Thyroxine (T4) Group A Strep Rapid 02/24/18 02/24/18 02/25/18 16:18 20:05 06:11 WBC 0.3 L RBC 2.75 L Hgb 8.9 L Hct 26 L MCV 93 MCH 33 H MCHC 35 RDW 13 Plt Count 5 L* D MPV 8.3 Neut % (Auto) Lymph % (Auto) Fleming % (Auto) Eos % (Auto) Baso % (Auto) Absolute Neuts (auto) Absolute Lymphs (auto) Absolute Monos (auto) Absolute Eos (auto) Absolute Basos (auto) Absolute Nucleated RBC Neutrophils % Lymphocytes % Reactive Lymphs % Monocytes % Eosinophils % Basophils % Nucleated RBC % Abs Neuts (Manual) Abs Lymphs (Manual) Abs Monocytes (Manual) Absolute Eos (Manual) Abs Basophils (Manual) Normal RBC Morphology Hem Pathologist Commnt INR (Anticoag Therapy) APTT Sodium Potassium Chloride Carbon Dioxide Anion Gap BUN Creatinine Est GFR ( Amer) Est GFR (Non-Af Amer) BUN/Creatinine Ratio Glucose Lactic Acid Calcium Magnesium Total Bilirubin AST ALT Alkaline Phosphatase CK-MB (CK-2) Troponin I 0.04 H* B-Natriuretic Peptide Total Protein Albumin Globulin Albumin/Globulin Ratio TSH Thyroxine (T4) Group A Strep Rapid Negative 02/25/18 06:11 WBC RBC Hgb Hct MCV MCH MCHC RDW Plt Count MPV Neut % (Auto) Lymph % (Auto) Fleming % (Auto) Eos % (Auto) Baso % (Auto) Absolute Neuts (auto) Absolute Lymphs (auto) Absolute Monos (auto) Absolute Eos (auto) Absolute Basos (auto) Absolute Nucleated RBC Neutrophils % Lymphocytes % Reactive Lymphs % Monocytes % Eosinophils % Basophils % Nucleated RBC % Abs Neuts (Manual) Abs Lymphs (Manual) Abs Monocytes (Manual) Absolute Eos (Manual) Abs Basophils (Manual) Normal RBC Morphology Hem Pathologist Commnt INR (Anticoag Therapy) APTT Sodium 134 L Potassium 4.0 Chloride 102 Carbon Dioxide 26 Anion Gap 6 BUN 21 Creatinine 0.86 Est GFR ( Amer) 103.0 Est GFR (Non-Af Amer) 85.1 BUN/Creatinine Ratio 24.4 H Glucose 138 H Lactic Acid Calcium 6.9 L Magnesium 1.8 L Total Bilirubin 1.20 H AST 16 ALT 8 Alkaline Phosphatase 46 CK-MB (CK-2) Troponin I B-Natriuretic Peptide Total Protein 4.7 L Albumin 2.3 L Globulin 2.4 Albumin/Globulin Ratio 1.0 TSH Thyroxine (T4) Group A Strep Rapid Acetaminophen (Tylenol Adult Liq*) 500 mg PO Q4HR PRN PRN Reason: PAIN Carvedilol (Coreg Tab*) 12.[address] [facility] Last Admin: 02/25/18 09:54 Dose: 12.5 mg Dronabinol (Marinol Cap*) 2.5 mg PO AC PRN PRN Reason: nausea, anorexia Folic Acid (Folvite Tab*) [address] [facility] Last Admin: 02/25/18 09:54 Dose: 1 mg Cefepime HCl (Maxipime 2 Gm In Dextrose Duplex (*)) 2 gm in 50 mls @ 100 mls/ hr IV Q12H [facility] Last Admin: 02/25/18 02:25 Dose: 100 mls/hr Sodium Chloride (Ns 0.9% 1000 Ml*) 1,000 mls @ 50 mls/hr IV .PER RATE [facility] Last Admin: 02/24/18 18:11 Dose: 50 mls/hr Morphine Sulfate (Morphine Oral.Soln 10 Mg*) 15 mg PO TID PRN PRN Reason: PAIN Last Admin: 02/24/18 20:18 Dose: 15 mg Multi-Ingredient Mouthwash/Gargle (Magic M W2 Eugene/Maal/Nyst/Lido*) 10 ml SWISH SWAL QID SIMONE Last Admin: 02/25/18 09:55 Dose: 10 ml Oxycodone HCl (Oxycodone Oral.Soln*) 10 mg PO Q4HR PRN PRN Reason: PAIN Last Admin: 02/25/18 02:28 Dose: 10 mg Sacubitril/Valsartan (Entresto (Nf)) [address] [facility] Last Admin: 02/24/18 23:33 Dose: Not Given ASSESSMENT: 82 yo M w metastatic NSCLC sp RT to c-spine very recently and cycle 1 of carbo/ pem/pem day 12 presenting with fatigue, poor PO intake, and pancytopenia. Clinically appears better hydrated today though still slightly dry. Cellulitis: stable to improved area outlined cefepime 2g IV q12 hrs culture if spikes hyponatremia: suspect hypovolemic hyponatremia very gentle hydration, with respect to CHF esophagitis: cont magic mouthwash swallowing cont home pain meds anorexia: related to cancer and esophagitis cont marinol, very low dose will apply for medical marijuana as an outpatient pancytopenia: chemotherapy related, hold off on port on Saturday transfuse 1 u PRBC and 1 U plts today systolic heart failure: appears dry to euvolemic today. echo with improved EF overall (50-55%) cont coreg continue sacubitril-valsartan DNR/DNI no DVT prophylaxis given will order scheduled C spine CT today and neurosurg
[2018-02-25] MEDS: Folic Acid TAB* 1 MG PO SCH (09:54)
[2018-02-25] MEDS: Carvedilol TAB* 6.25 MG PO SCH ×2 (09:54→22:02)
[2018-02-25] MEDS: Magic M W2 Ben/Maal/Nyst/Lido* 240 ML MOUTHWASH (alt formulation) SWISH SWAL SCH ×4 (09:55→22:03)
[2018-02-25] MEDS ORDERED: Carvedilol TAB* 6.25 MG ONE (10:01)
[2018-02-25] MEDS: PTO:Sacubitril/Valsartan 24/26(NF) 1 TAB PO SCH ×2 (10:08→22:03)
[2018-02-25 14:28] LABS: Mean Platelet Volume 7.4 um3 (7.4-10.4); Platelet Count 17 10^3/ul (150-450)
--- NOTE | 2018-02-25 14:54 | RAD ---
HISTORY: c6 lesion COMPARISONS: January 10, 2018, PET/CT dated January 27, 2018, radiation planning CT dated January 23, 2018 TECHNIQUE: Multiple contiguous axial CT scans were obtained of the cervical spine without intravenous contrast, with coronal and sagittal multiplanar reformations. FINDINGS: BRAIN: The visualized brain is unremarkable CENTRAL CANAL: Evaluation of the central canal is limited on CT technique; however, there is no obvious canalicular mass or epidural hemorrhage. ALIGNMENT: The alignment is normal, without subluxation or dislocation. VERTEBRAL BODIES: Again noted is a lytic lesion of the C6 vertebral body centered to the left midline. This measures approximately 2.6 x 2 cm transversely. There has been interval anterior wedging of the vertebral body without osseous retropulsion. JOINTS: There is no subluxation or dislocation. There is uncovertebral and facet osteoarthritis. MUSCULATURE: Unremarkable INTERVERTEBRAL DISCS: There is diffuse loss of intervertebral disc height. AXIAL IMAGES: C2-C3: There is no osseous neural foraminal narrowing or central canal stenosis. C3-C4: There is severe right neuroforaminal narrowing. There is no osseous central canal stenosis. C4-C5: There is no osseous neural foraminal narrowing or central canal stenosis. C5-C6: There is severe left neuroforaminal narrowing. There is no osseous central canal stenosis. C6-C7: There is moderate left neural foraminal narrowing. There is no osseous central canal stenosis. C7-T1: There is no osseous neural foraminal narrowing or central canal stenosis. SOFT TISSUES: Again noted is a spiculated mass of the left lung apex. There is emphysematous change with bilateral pleural effusions. OTHER: None. IMPRESSION: 1. AGAIN NOTED IS A LYTIC LESION OF THE C6 VERTEBRAL BODY CONSISTENT WITH METASTATIC DISEASE. THERE HAS BEEN INTERVAL LOSS OF VERTEBRAL BODY HEIGHT AT C6 PATHOLOGIC COMPRESSION FRACTURE. THERE IS NO OSSEOUS RETROPULSION. 2. DEGENERATIVE DISC DISEASE AND OSTEOARTHRITIS. 3. LEFT APICAL MASS. 4. EMPHYSEMA. 5. BILATERAL PLEURAL EFFUSIONS.
[2018-02-26] MEDS: Cefepime 2 GM in Dextrose(*) 2 GM/50 ML BAG IV SCH ×2 (02:00→15:54)
[2018-02-26] MEDS: Folic Acid TAB* 1 MG PO SCH (09:10)
[2018-02-26] MEDS: PTO:Sacubitril/Valsartan 24/26(NF) 1 TAB PO SCH ×2 (09:11→21:10)
[2018-02-26] MEDS: Carvedilol TAB* 6.25 MG PO SCH ×2 (09:11→21:10)
[2018-02-26] MEDS: Magic M W2 Ben/Maal/Nyst/Lido* 240 ML MOUTHWASH (alt formulation) SWISH SWAL SCH ×4 (09:12→21:10)
[2018-02-26 10:46] LABS: Hematocrit 23 % (42-52); Hemoglobin 8.1 g/dl (14.0-18.0); Mean Corpuscular HGB Conc 35 g/dl (31-36); Mean Corpuscular Hemoglobin 33 pg (27-31); Mean Corpuscular Volume 93 fL (80-94); Mean Platelet Volume 7.5 um3 (7.4-10.4); Platelet Count 16 10^3/ul (150-450); Red Cell Distribution Width 14 % (10.5-15); White Blood Count 0.3 10^3/ul (3.5-10.8)
[2018-02-26 10:58] LABS: EGFR Non-African American 73.2 (>60)
[2018-02-26 11:26] LABS: ABS Basophils 0 10^3/ul (0-0.2); ABS Eosinophils 0 10^3/ul (0-0.6); ABS Lymphocytes 0.2 10^3/ul (1.0-4.8); ABS Monocytes 0 10^3/ul (0-0.8); ABS Neutrophils 0 10^3/ul (1.5-7.7); ABS Nucleated RBC 0 10^3/ul; Lymphocyte % 73.4 % (25-47); Nucleated Red Blood Cells % 0.5
--- NOTE | 2018-02-26 16:47 | PN ---
Progress Note - Progress Note Date of Service: 02/26/18 SOAP: Subjective: [Has soar throat. Feels very fatigued and wiped out. Not in pain and not using pain medication. Has a soar throat and some difficulty swallowing. No fever or chills. Acetaminophen (Tylenol Adult Liq*) 500 mg PO Q4HR PRN PRN Reason: PAIN Carvedilol (Coreg Tab*) 6.25 mg PO BID [facility] Dronabinol (Marinol Cap*) 2.5 mg PO AC PRN PRN Reason: nausea, anorexia Folic Acid (Folvite Tab*) 1 mg PO DAILY [facility] Last Admin: 02/26/18 09:10 Dose: 1 mg Cefepime HCl (Maxipime 2 Gm In Dextrose Duplex (*)) 2 gm in 50 mls @ 100 mls/ hr IV Q12H [facility] Last Admin: 02/26/18 15:54 Dose: 100 mls/hr Sodium Chloride (Ns 0.9% 1000 Ml*) 1,000 mls @ 75 mls/hr IV .PER RATE [facility] Morphine Sulfate (Morphine Oral.Soln 10 Mg*) 15 mg PO TID PRN PRN Reason: PAIN Last Admin: 02/24/18 20:18 Dose: 15 mg Multi-Ingredient Mouthwash/Gargle (Magic M W2 Eugene/Maal/Nyst/Lido*) 10 ml SWISH SWAL QID [facility] Last Admin: 02/26/18 14:02 Dose: 10 ml Oxycodone HCl (Oxycodone Oral.Soln*) 10 mg PO Q4HR PRN PRN Reason: PAIN Last Admin: 02/25/18 02:28 Dose: 10 mg Sacubitril/Valsartan (Entresto /(Nf)) 1 tab PO BID [facility] Last Admin: 02/26/18 09:11 Dose: 1 tab Objective: [] Vital Signs Temp Pulse Resp BP Pulse Ox 98.6 F 41 16 96/43 93 02/26/18 11:56 02/26/18 11:56 02/26/18 11:56 02/26/18 11:56 02/26/18 11:56 HEENT - no oral lesions, moist, no thrush decreased BS, CTA RRR S1S2, 40s +BS NT ND Ext no edema, warm and good pulses. cellulitis further receding. WBC 0.3, Hgb 8.1, Plts 16 chemistries stable Assessment: 82 yo M w metastatic NSCLC sp RT to c-spine very recently and cycle 1 of carbo/ pem/pem day 13 presenting with fatigue, poor PO intake, and pancytopenia. Reason for severity of pancytopenia is unclear, possible underlying MDS, renal insufficiency. 1. Cellulitis: stable to improved on cefepime 2g IV q12 hrs. Follow and continue antibiotics until increased counts. 2. Pancytopenia. Will follow, supportive care. - Tx Plt < 10k - Tx PRBC for Hgb < 8 3. FEN/GI - magic mouthwash swallowing - Not eating much, NS to 75 cc/hr - Will continue Marinol. 4. CHF. Echo with EF 55%, euvolemic. - Continue ARB - Low BP, decrease Coreg to 6.25 mg po bid 5. Will need PT once blood counts start to improve, will hold for today 6. DNR DNI 7. Lung cancer. Will need modified chemotherapy if treatament continued. Likely treat with pembrolizumab/pemetrexed. 8. Hyponatremia. Improved with hydration
[2018-02-26] MEDS ORDERED: NS 0.9% 1000 ML* 1,000 ML IV SCH (17:00)
[2018-02-27] MEDS: Cefepime 2 GM in Dextrose(*) 2 GM/50 ML BAG IV SCH ×2 (02:08→14:48)
[2018-02-27 07:29] LABS: Hematocrit 20 % (42-52); Hemoglobin 6.9 g/dl (14.0-18.0); Mean Corpuscular HGB Conc 35 g/dl (31-36); Mean Corpuscular Hemoglobin 32 pg (27-31); Mean Corpuscular Volume 93 fL (80-94); Mean Platelet Volume 8.2 um3 (7.4-10.4); Platelet Count 16 10^3/ul (150-450); Red Blood Count 2.16 10^6/ul (4.00-5.40); Red Cell Distribution Width 13 % (10.5-15); White Blood Count 0.3 10^3/ul (3.5-10.8)
[2018-02-27 07:40] LABS: EGFR Non-African American 77.8 (>60)
[2018-02-27 09:16] LABS: ABS Basophils 0 10^3/ul (0-0.2); ABS Neutrophils 0 10^3/ul (1.5-7.7); Monocytes % 11 % (0-7)
[2018-02-27] MEDS ORDERED: Calcium Gluconate INJ* 2 GM in NS 0.9% 100 ML* 100 ML IV ONE (09:45)
--- NOTE | 2018-02-27 10:26 | PN ---
Progress Note - Progress Note Date of Service: 02/27/18 SOAP: Subjective: feels very weak this am. coughed up a "chunk" and breathing better now. i do note that it is hemoptysis, but with his macular degeneration he can not actually visualize this. no trouble breathing. Objective: Vital Signs Temp Pulse Resp BP Pulse Ox 97.9 F 68 18 112/51 94 02/27/18 08:04 02/27/18 08:04 02/27/18 08:04 02/27/18 08:04 02/27/18 08:04 lying flat in nad perr eomi op moist mild crackles at bases bilaterally s1 s2 nl soft nt +Bs dark red area on right blancas improving, though petechia around it worse A+O x 3, globally weak, did not ambulate Laboratory Results - last 24 hr 02/25/18 02/26/18 02/26/18 06:11 10:32 10:32 WBC 0.3 L RBC 2.50 L Hgb 8.1 L Hct 23 L MCV 93 MCH 33 H MCHC 35 RDW 14 Plt Count 16 L MPV 7.5 Neut % (Auto) 11.8 L Lymph % (Auto) 73.4 H Beaver % (Auto) 11.8 H Eos % (Auto) 3.0 Baso % (Auto) 0 Absolute Neuts (auto) 0 L Absolute Lymphs (auto) 0.2 L Absolute Monos (auto) 0 Absolute Eos (auto) 0 Absolute Basos (auto) 0 Absolute Nucleated RBC 0 Neutrophils % Lymphocytes % Monocytes % Eosinophils % Basophils % Nucleated RBC % 0.5 Abs Neuts (Manual) Abs Lymphs (Manual) Abs Monocytes (Manual) Absolute Eos (Manual) Abs Basophils (Manual) Normal RBC Morphology Sodium 136 Potassium 3.9 Chloride 104 Carbon Dioxide 22 Anion Gap 10 BUN 22 Creatinine 0.98 Est GFR ( Amer) 88.6 Est GFR (Non-Af Amer) 73.2 BUN/Creatinine Ratio 22.4 H Glucose 133 H Calcium 6.6 L Total Bilirubin 1.20 H AST 19 ALT 11 Alkaline Phosphatase 48 Total Protein 4.9 L Albumin 2.4 L Globulin 2.5 Albumin/Globulin Ratio 1.0 Vitamin B12 430 Blood Type A Negative Antibody Screen Negative Crossmatch See Detail 02/27/18 02/27/18 06:35 06:35 WBC 0.3 L RBC 2.16 L Hgb 6.9 L Hct 20 L MCV 93 MCH 32 H MCHC 35 RDW 13 Plt Count 16 L MPV 8.2 Neut % (Auto) Not Reportable Lymph % (Auto) Not Reportable Beaver % (Auto) Not Reportable Eos % (Auto) Not Reportable Baso % (Auto) Not Reportable Absolute Neuts (auto) 0 L Absolute Lymphs (auto) Not Reportable Absolute Monos (auto) Not Reportable Absolute Eos (auto) Not Reportable Absolute Basos (auto) Not Reportable Absolute Nucleated RBC Not Reportable Neutrophils % 5 L Lymphocytes % 84 H Monocytes % 11 H Eosinophils % 0 Basophils % 0 Nucleated RBC % Not Reportable Abs Neuts (Manual) 0 L Abs Lymphs (Manual) 0.3 L Abs Monocytes (Manual) 0 Absolute Eos (Manual) 0 Abs Basophils (Manual) 0 Normal RBC Morphology Normal Sodium 138 Potassium 4.0 Chloride 108 Carbon Dioxide 20 L Anion Gap 10 BUN 25 H Creatinine 0.93 Est GFR ( Amer) 94.1 Est GFR (Non-Af Amer) 77.8 BUN/Creatinine Ratio 26.9 H Glucose 137 H Calcium 6.4 L* Total Bilirubin 1.00 AST 17 ALT 10 Alkaline Phosphatase 46 Total Protein 4.6 L Albumin 2.3 L Globulin 2.3 Albumin/Globulin Ratio 1.0 Vitamin B12 Blood Type Antibody Screen Crossmatch Acetaminophen (Tylenol Adult Liq*) 500 mg PO Q4HR PRN PRN Reason: PAIN Carvedilol (Coreg Tab*) 6.25 mg PO BID [facility] Last Admin: 02/26/18 21:10 Dose: 6.25 mg Dronabinol (Marinol Cap*) 2.5 mg PO AC PRN PRN Reason: nausea, anorexia Folic Acid (Folvite Tab*) 1 mg PO DAILY [facility] Last Admin: 02/26/18 09:10 Dose: 1 mg Cefepime HCl (Maxipime 2 Gm In Dextrose Duplex (*)) 2 gm in 50 mls @ 100 mls/ hr IV Q12H [facility] Stop: 02/28/18 01:59 Last Admin: 02/27/18 02:08 Dose: 100 mls/hr Sodium Chloride (Ns 0.9% 1000 Ml*) 1,000 mls @ 75 mls/hr IV .PER RATE [facility] Last Admin: 02/26/18 18:14 Dose: 75 mls/hr Cefepime HCl 2 gm/ Sodium (Chloride) 50 mls @ 100 mls/hr IVPB Q12H [facility] Calcium Gluconate 2 gm/ Sodium (Chloride) 120 mls @ 60 mls/hr IV ONCE ONE Stop: 02/27/18 11:44 Morphine Sulfate (Morphine Oral.Soln 10 Mg*) 15 mg PO TID PRN PRN Reason: PAIN Last Admin: 02/24/18 20:18 Dose: 15 mg Multi-Ingredient Mouthwash/Gargle (Magic M W2 Eugene/Maal/Nyst/Lido*) 10 ml SWISH SWAL QID [facility] Last Admin: 02/26/18 21:10 Dose: 10 ml Oxycodone HCl (Oxycodone Oral.Soln*) 10 mg PO Q4HR PRN PRN Reason: PAIN Last Admin: 02/25/18 02:28 Dose: 10 mg Sacubitril/Valsartan (Entresto /(Nf)) 1 tab PO BID [facility] Last Admin: 02/26/18 21:10 Dose: 1 tab ASSESSMENT: 82 yo M w metastatic NSCLC sp RT to c-spine very recently and cycle 1 of carbo/ pem/pem day 12 presenting with fatigue, poor PO intake, and pancytopenia. Cellulitis: stable to improved area outlined cefepime 2g IV q12 hrs until WBC recovers culture if spikes hyponatremia: resolved stop IVFs today getting blood and plts esophagitis: cont magic mouthwash swallowing cont home pain meds anorexia: related to cancer and esophagitis cont marinol, very low dose will apply for medical marijuana as an outpatient pancytopenia: chemotherapy related transfuse 1 u PRBC and 1 U plts today (hemoptysis) hemoptysis: may be from esophagitis, regardless thrombocytopenia likely exacerbating. will transfuse plts today and observe closely hypocalcemia: replete IV today systolic heart failure: appears dry to euvolemic today. echo with improved EF overall (50-55%) cont coreg, though decreased dose at 6.25 bid. if remains low BP will drop further to 3.125 bid continue sacubitril-valsartan DNR/DNI no DVT prophylaxis given thrombocytopenia encourage OOB-->chair, chair exercises
[2018-02-27] MEDS: Magic M W2 Ben/Maal/Nyst/Lido* 240 ML MOUTHWASH (alt formulation) SWISH SWAL SCH ×4 (10:30→21:36)
[2018-02-27] MEDS: Folic Acid TAB* 1 MG PO SCH (10:30)
[2018-02-27] MEDS: PTO:Sacubitril/Valsartan 24/26(NF) 1 TAB PO SCH ×2 (10:39→21:36)
[2018-02-27] MEDS: Carvedilol TAB* 6.25 MG PO SCH ×2 (11:28→21:35)
[2018-02-27 22:27] LABS: Mean Platelet Volume 8.6 um3 (7.4-10.4); Platelet Count 53 10^3/ul (150-450)
[2018-02-28] MEDS: Cefepime(*) 2 GM in NS 0.9% 50 ML* 50 ML IVPB SCH ×2 (03:07→15:18)
[2018-02-28 06:44] LABS: Hematocrit 21 % (42-52); Hemoglobin 7.4 g/dl (14.0-18.0); Mean Corpuscular HGB Conc 35 g/dl (31-36); Mean Corpuscular Hemoglobin 32 pg (27-31); Mean Corpuscular Volume 91 fL (80-94); Mean Platelet Volume 8.2 um3 (7.4-10.4); Platelet Count 54 10^3/ul (150-450); Red Blood Count 2.33 10^6/ul (4.00-5.40); Red Cell Distribution Width 15 % (10.5-15); White Blood Count 0.3 10^3/ul (3.5-10.8)
[2018-02-28 06:58] LABS: EGFR Non-African American 77.8 (>60)
[2018-02-28 08:17] LABS: ABS Basophils 0 10^3/ul (0-0.2); ABS Neutrophils 0 10^3/ul (1.5-7.7); Monocytes % 23 % (0-7)
[2018-02-28] MEDS: PTO:Sacubitril/Valsartan 24/26(NF) 1 TAB PO SCH (09:12)
[2018-02-28] MEDS: Carvedilol TAB* 6.25 MG PO SCH ×2 (09:12→20:45)
[2018-02-28] MEDS: Folic Acid TAB* 1 MG PO SCH (09:12)
[2018-02-28] MEDS: Magic M W2 Ben/Maal/Nyst/Lido* 240 ML MOUTHWASH (alt formulation) SWISH SWAL SCH ×4 (09:33→20:46)
--- NOTE | 2018-02-28 10:00 | PN ---
Progress Note - Progress Note Date of Service: 02/28/18 SOAP: Subjective: []EVENTS: - Staight cath: 450 cc 1800 02/27, > 300 ml pm 02/26 - A-fb on monitor today PER PATIENT: - Still some coughing up blood - Breathing fine, but does not like face mask - Some pressure to urinate - Not moving much - Still not eating much of anything - No pain and no fevers Objective: [] Vital Signs Temp Pulse Resp BP Pulse Ox 98.6 F 92 18 113/53 96 02/28/18 07:47 02/28/18 07:47 02/28/18 07:47 02/28/18 07:47 02/28/18 07:47 HEENT - no oral lesions, moist, no thrush decreased BS, CTA RRR S1S2, 40s +BS NT ND Ext no edema, warm and good pulses. Non healing small area of cellulites on right ankle. MK - very weak. WBC 0.3, Hgb 7.6 Plts 54 chemistries stable Assessment: 82 yo M w metastatic NSCLC sp RT to c-spine very recently and cycle 1 of carbo/ pem/pem day 15 presenting with fatigue, poor PO intake, and pancytopenia. Reason for severity of pancytopenia is unclear, possible underlying MDS, question immune based aplastic anemia. 1. Pancytopenia. Prolonged to be from this chemotherapy. There are case reports of aplastic anemia but after multiple cycles of therapy. Responds to transfustion and platlets so is not immune consumptive. 1. Cellulitis: stable to improved on cefepime 2g IV q12 hrs. Follow and continue antibiotics until increased counts. 2. Pancytopenia. Will follow, supportive care. - Tx Plt < 10k - Tx PRBC for Hgb < 8 3. FEN/GI - magic mouthwash swallowing - Not eating much, NS to 75 cc/hr - Will continue Marinol. 4. CHF. Echo with EF 55%, euvolemic. - Continue ARB - Low BP, decrease Coreg to 6.25 mg po bid 5. Will need PT once blood counts start to improve, will hold for today 6. DNR DNI 7. Lung cancer. Will need modified chemotherapy if treatament continued. Likely treat with pembrolizumab/pemetrexed. 8. Hyponatremia. Improved with hydration
[2018-02-28 10:56] LABS: INR 1.7 (0.77-1.02)
[2018-02-28] MEDS: FILGRASTIM-SNDZ* 480 MCG/0.8 ML SYRINGE SUBCUT SCH (12:36)
[2018-02-28] MEDS: NS 0.9% 1000 ML* 1,000 ML IV SCH ×2 (15:18→21:31)
[2018-02-28] MEDS: traZODone TAB* 50 MG TAB PO PRN (20:44)
[2018-03-01] MEDS: Cefepime(*) 2 GM in NS 0.9% 50 ML* 50 ML IVPB SCH ×2 (01:58→15:34)
[2018-03-01 06:53] LABS: EGFR Non-African American 76.8 (>60)
[2018-03-01 07:00] LABS: Hematocrit 22 % (42-52); Hemoglobin 7.6 g/dl (14.0-18.0); Mean Corpuscular HGB Conc 35 g/dl (31-36); Mean Corpuscular Hemoglobin 31 pg (27-31); Mean Corpuscular Volume 89 fL (80-94); Mean Platelet Volume 9.8 um3 (7.4-10.4); Platelet Count 40 10^3/ul (150-450); Red Blood Count 2.45 10^6/ul (4.00-5.40); Red Cell Distribution Width 15 % (10.5-15); White Blood Count 0.5 10^3/ul (3.5-10.8)
[2018-03-01 08:26] LABS: ABS Basophils 0 10^3/ul (0-0.2); ABS Neutrophils 0.2 10^3/ul (1.5-7.7); Monocytes % 7 % (0-7)
[2018-03-01] MEDS: Magic M W2 Ben/Maal/Nyst/Lido* 240 ML MOUTHWASH (alt formulation) SWISH SWAL SCH ×4 (08:49→21:12)
[2018-03-01] MEDS: KCL 10 MEQ/50 ML IVPREMIX* 10 MEQ/50 ML BAG IV SCH ×4 (08:50→18:20)
[2018-03-01] MEDS: FILGRASTIM-SNDZ* 480 MCG/0.8 ML SYRINGE SUBCUT SCH (08:56)
[2018-03-01] MEDS: Folic Acid TAB* 1 MG PO SCH (08:58)
[2018-03-01] MEDS: Carvedilol TAB* 6.25 MG PO SCH ×2 (08:58→21:12)
--- NOTE | 2018-03-01 09:24 | PN ---
Progress Note - Progress Note Date of Service: 03/01/18 SOAP: Subjective: [] EVENTS: - urination improved, still following bladder scans. - hypoxia with sat to 80s yesterday, he was asymptomatic. PER PATIENT: - No coughing as much, not coughing blood yesterday - Breathing fine, but does not like face mask - urinated better - Not moving much, not hungry - Still not eating much of anything, some throat pain. - No fevers. Objective: [] Vital Signs Temp Pulse Resp BP Pulse Ox 98.8 F 99 21 119/60 88 03/01/18 03:24 03/01/18 03:24 03/01/18 03:24 03/01/18 03:24 03/01/18 03:24 HEENT - no oral lesions, moist, no thrush decreased BS, no wheezing. RRR S1S2, 60s +BS NT ND Ext no edema, warm and good pulses. Non healing small area of cellulites on right ankle. MK - very weak. ANC to 250, WBC to 500, hgb 7.4, Plts 40k K 3.4 Ca adjusted 8.1 Assessment: 82 yo M w metastatic NSCLC sp RT to c-spine very recently and cycle 1 of carbo/ pem/pem day 15 presenting with fatigue, poor PO intake, and pancytopenia. Reason for severity of pancytopenia is unclear, possible underlying MDS, question immune based aplastic anemia. 1. Pancytopenia. Prolonged to be from this chemotherapy. There are case reports of aplastic anemia but after multiple cycles of therapy. Responds to transfustion and platlets so is not immune consumptive. - On Neupogen 480 mcg with increased ANC today, continue 2. Cellulitis: stable to improved on cefepime 2g IV q12 hrs. Follow and continue antibiotics until increased counts. 3. Pancytopenia. Will follow, supportive care. - Tx Plt < 10k - Tx PRBC for Hgb < 8, transfuse today - Short course 4. FEN/GI - magic mouthwash swallowing - Not eating much, NS to 100 cc/hr - Will continue Marinol - Ensure with each meal - Low K, 40 christiano in K runs, add to NS 5. Echo. Echo with EF 55%, euvolemic. - Holding ARB and on Coreg at 12.5 - replete K, Mg 2.1 - Question of 8 beat run [facility], consult cardiology. 6. Will need PT once blood counts start to improve, will hold for today 7. DNR DNI 8. Lung cancer. Will need modified chemotherapy if treatament continued. Likely treat with pembrolizumab/pemetrexed.
[2018-03-01] MEDS ORDERED: NS 0.9% w/ 40 Meq KCL 1000 ML* 1,000 ML IV SCH (10:00)
--- NOTE | 2018-03-01 11:35 | RAD ---
INDICATION: Hypoxia. COMPARISON: Comparison is made with a prior CT angiogram of the chest from February 24, 2018. Correlation is also made with a prior PET/CT study from January 27, 2018. TECHNIQUE: A CT scan of the chest was performed without intravenous contrast. Contiguous axial sections were obtained from the lung apices through the lung bases. Images were reconstructed in the coronal and sagittal planes. FINDINGS: LUNGS: There is a 2.8 x 3.0 cm irregularly shaped mass present in the left upper lobe which is unchanged from the recent prior study. There is moderate to severe centrilobular emphysematous change. There appears to be diffuse bilateral superimpose interstitial infiltrates which appear similar to the prior exam although progressed from the prior PET/CT study suggestive of congestive heart failure less likely pneumonia or lymphangitic spread of tumor. There are small bilateral pleural effusions present. MEDIASTINUM: There are enlarged mediastinal lymph nodes in the right paratracheal, precarinal and subcarinal regions. These appear to have progressed slightly for example a lymph node in the right paratracheal region measures 1.6 cm in transverse dimension and previously measured 1.2 cm in transverse dimension. There are also enlarged left hilar lymph nodes which were better defined on the prior contrast enhanced study. HEART: The heart is mildly enlarged. No pericardial effusion is present. There are coronary calcifications present. THORACIC AORTA: The thoracic aorta is normal in caliber. There is mild calcific plaque present. ABDOMEN: No acute findings are seen on the visualized portion of the upper abdomen. BONES: No significant focal osseous abnormality is seen. IMPRESSION: 1. DIFFUSE INTERSTITIAL INFILTRATES MOST CONSISTENT WITH CONGESTIVE HEART FAILURE LESS LIKELY PNEUMONIA OR LYMPHANGITIC SPREAD OF TUMOR. 2. LEFT UPPER LOBE MASS, UNCHANGED. 3. MEDIASTINAL AND LEFT HILAR LYMPHADENOPATHY. SLIGHT PROGRESSION OF THE MEDIASTINAL LYMPHADENOPATHY. 4. MODERATE TO SEVERE EMPHYSEMATOUS CHANGE.
[2018-03-01] MEDS ORDERED: methylPREDNISolone 125 MG* 2 ML VIAL IV ONE (12:05)
--- NOTE | 2018-03-01 20:18 | CONS ---
CC: Dr. Echevarria; Dr. Lunsford; Dr. Lopez; Dr. Garduno CARDIOLOGY CONSULT: DATE OF CONSULT: 03/01/18 PRIMARY CARE PHYSICIAN: Dr. Garduno. HISTORY OF PRESENT ILLNESS: I was asked by Dr. Echevarria to see this 82-year-old male patient for nonsust ained V-tach. The patient with known history of cardiomyopathy, severe in nature in the past, out of proportion to his known CAD. In June 2016, he had a cardiac cath by Dr. Harman that showed him t o have [id number] coronary artery disease with extensive calcification, insufficient to explain his severe left ventricular systolic function. He has had newly diagnosed non-squamous cell lung ca ncer. About 2 months ago, had radiation treatment and just completed 1 cycle of chemotherapy, . He said the chemotherapy made him feel fatigued, tired, lack of energy. He did not really do we ll with that. He had severe pancytopenia of unclear etiology at the present time. He followed up wi Dr. Lopez from cardiac standpoint. A few days ago, he felt fatigued, tired, poor p.o. intake, a nd was hospitalized for a followup. He had an echo that was just completed 02/24/18 that showed EF r ecovering to 50% to 55%. He does have history of congestive heart failure in the past, alcoholism in the past. He had also history of PVCs and coronary artery disease and history of systolic and diast olic heart failure. He was found to have also [id number] mitral insufficiency by his recent ec ho. He was noticed to have at 9 o'clock this morning, 7 beats run of nonsustained V-tach. Of note, his potassium was low at 3.6 and he is really anemic with a hemoglobin as low as 6.9 on 02/27/18, 7.4 and 7.6 today. He had no symptoms of chest pain. His breathing is good according to him. He had n o fever, no chills, no skin rash, no tremors, no nausea, no vomiting, no syncope, no major swelling i n the lower extremities, no hematochezia is appreciated. His medication has been adjusted by Dr. Katherine miller and his ARBs are on hold to help in his blood pressure and his beta hugo, Coreg, is at 12.5 mg t wice a day now. He is on antibiotic treatment for some concern for a skin lesion on the right lower extremity, could be beginning of cellulitis, although he is afebrile, but he is covered with antibiot ic treatment. PAST MEDICAL HISTORY: His past medical history is extensive as outlined above, also history of nonis chemic cardiomyopathy, history of coronary artery disease, history of alcoholism, congestive heart fa ilure. Echo in the past was as low as 20% to 25% with recovering EF recently. PAST SURGICAL HISTORY: Tonsillectomy. MEDICATIONS: His medications as an outpatient include: 1. Entresto 24/26 mg twice a day. 2. Potassium 10 mEq 2 daily. 3. Coreg 12.5 mg twice a day. 4. Aspirin 81 mg daily. His medications as an inpatient include: 1. Tylenol 500 mg p.o. q.4 hours p.r.n. 2. Coreg 12.5 mg twice a day. 3. Cefepime daily. 4. He is also on folic acid 1 mg daily. 5. He was started on Solu-Medrol 60 mg IV daily. 6. Morphine 15 mg p.o. t.i.d. 7. Oxycodone 10 mg p.o. q.4 hours p.r.n. 8. Potassium. 9. Trazodone. ALLERGIES: No known drug allergies. SOCIAL HISTORY: He is a former smoker about 40 years, 2 to 5 packs per day. He quit in 2000. No hi story of alcoholism at the present time. No illicit drug use. He was in rehab for alcoholism in 1989. PHYSICAL EXAM: He is frail, but he is not in acute distress. He had no symptoms of chest pain. He is not tachypneic. Blood pressure 115/50; pulse 92, he is in sinus rhythm; temperature 98.6; respira tory rate is 20. Head and Neck Exam: Normocephalic, atraumatic head. Ears, nose, and throat essenti ally benign. Neck: Supple. JVP is not elevated. No carotid bruits. Chest: Diminished air entry a t the bases, but no rales, no wheeze. Heart: Normal, S1, S2. No added sounds. No gallops, no rubs . Abdomen: Benign, soft. Positive bowel sounds. Extremities: No significant edema, no cyanosis, n o clubbing. There is redness, but no hotness, no tenderness. Skin lesion on the right lower extremi ty. SENIOR EDITOR: No focal deficits. Psych: Normal affect and mood. DIAGNOSTIC STUDIES/LAB DATA: His labs showed the following: White blood , hemoglobin 7.6, vale tocrit 22, platelets are 40. Sodium 143, potassium 3.4, chloride 112, carbon dioxide 23, BUN 25, cre atinine 0.94. LFTs normal. Troponin 0.04. BNP was only actually mildly elevated at 265. His CT chest that was done today, showed element of possible congestive heart failure. There is left upper lobe mass unchanged, mediastinal, and left hilar lymphadenopathy, and [id number] emphy sematous changes. His EKG showed him to be there are periods he is in sinus rhythm and there are PACs appreciated, but definitely he is in sinus mechanism, nonspecific ST-T changes. IMPRESSION: The patient is an 82-year-old male with: 1. Consult for nonsustained ventricular tachycardia of unclear etiology at the present time, could b e multifactorial in nature including his low potassium, significant anemia, and pancytopenia. It is unlikely progression of coronary artery disease in absence of his chest pain, stable EKG, and also mi nimal borderline troponin, but this will be watched very closely. 2. History of severe cardiomyopathy, out of proportion to known coronary artery disease with recover ing ejection fraction to 50% to 55% by a recent echo done 02/24/18. 3. Known history of coronary artery disease, mild to moderate, with calcification by cardiac cath do ne June 2016. 4. Newly diagnosed non-squamous cell lung cancer with left upper mass in the lung with radiation malia atment and 1 cycle of chemotherapy completed 02/15/18, which he did not feel well after that actually . 5. Significant fatigue and poor p.o. intake, probably related to his significant pancytopenia and ch emotherapy treatment. 6. Premature atrial contractions. 7. Bigeminy. 8. Remote history of tobacco consumption, he quit. 9. Moderate mitral insufficiency. PLAN: The patient is not overtly in congestive heart failure. He appears to be hemodynamically stab le. Regarding his bigeminy and nonsustained V-tach, I recommend aggressive magnesium and potassium r eplenishment as you are already doing. Even if his magnesium is 2 or more, I would recommend giving magnesium as well in light of his hypokalemia. Anemia treatment and pancytopenia as you are already doing. Hoping to keep his hemoglobin more than 8. We have to be very careful in using diuretics; I think he is euvolemic. Antibiotic treatment as you are already doing. His recent echo a few days ag o is assuring regarding his overall left ventricular systolic function within normal limits. Beta-bl ocker treatment and if blood pressure allows to increase his Coreg as you are already doing. We will follow him closely. We will make further recommendations accordingly. Thank you very much for asking us to participate in the care of this patient. TIME SPENT: More than half of at least 60 to 65 plus minutes was in education, counseling mode, face -to-face evaluating the above and making further recommendations, and answering all his concerns and questions up to his satisfaction. [id number]/[facility] #: [id number]
[2018-03-01] MEDS: traZODone TAB* 50 MG TAB PO PRN (21:12)
[2018-03-02] MEDS ORDERED: Furosemide IV* 10 MG/ML 2 ML VIAL (20 MG) ONE (00:04)
[2018-03-02] MEDS ORDERED: Furosemide IV* 10 MG/ML 2 ML VIAL (20 MG) IV ONE (01:00)
[2018-03-02] MEDS: Cefepime(*) 2 GM in NS 0.9% 50 ML* 50 ML IVPB SCH ×2 (01:35→14:08)
[2018-03-02 06:23] LABS: Hematocrit 27 % (42-52); Hemoglobin 9.6 g/dl (14.0-18.0); Mean Corpuscular HGB Conc 35 g/dl (31-36); Mean Corpuscular Hemoglobin 31 pg (27-31); Mean Corpuscular Volume 88 fL (80-94); Mean Platelet Volume 9.5 um3 (7.4-10.4); Platelet Count 49 10^3/ul (150-450); Red Blood Count 3.08 10^6/ul (4.00-5.40); Red Cell Distribution Width 15 % (10.5-15); White Blood Count 2.3 10^3/ul (3.5-10.8)
[2018-03-02 06:28] LABS: EGFR Non-African American 64.8 (>60)
[2018-03-02 07:43] LABS: ABS Basophils 0 10^3/ul (0-0.2); Monocytes % 0 % (0-7)
[2018-03-02 07:44] LABS: ABS Neutrophils 1.6 10^3/ul (1.5-7.7)
[2018-03-02] MEDS: KCL 10 MEQ/50 ML IVPREMIX* 10 MEQ/50 ML BAG IV SCH ×3 (08:09→12:36)
[2018-03-02] MEDS: Carvedilol TAB* 6.25 MG PO SCH (08:32)
[2018-03-02] MEDS: Folic Acid TAB* 1 MG PO SCH (08:32)
[2018-03-02] MEDS: FILGRASTIM-SNDZ* 480 MCG/0.8 ML SYRINGE SUBCUT SCH (08:39)
[2018-03-02] MEDS: Magic M W2 Ben/Maal/Nyst/Lido* 240 ML MOUTHWASH (alt formulation) SWISH SWAL SCH ×2 (08:39→14:08)
[2018-03-02] MEDS ORDERED: methylPREDNISolone 125 MG* 2 ML VIAL IV SCH (09:00)
[2018-03-02 12:40] VITALS: BP 116/61
[2018-03-02] MEDS ORDERED: Furosemide IV* 10 MG/ML VIAL (40 MG) IV ONE (13:36)
--- NOTE | 2018-03-02 21:17 | DS ---
CC: Dr. Echevarria * SUMMARY: DATE OF ADMISSION: 02/24/18 DATE OF EXPIRATION: 03/02/18 TIME OF : 3:49 p.m. PRINCIPAL DIAGNOSES: 1. Acute hypoxic respiratory failure leading to cardiac arrest. 2. Progressive non-small cell lung cancer. 3. Coronary artery disease. 4. Nonsustained ventricular tachycardia. 5. Emphysema. 6. Pancytopenia. 7. Right ventricular failure. BRIEF HOSPITAL COURSE: Mr. Leon is an 82-year-old man with history of non- small cell lung cancer who has been following with Oncology and has undergone 1 cycle of chemotherapy who was admitted to the hospital on 02/24/18 for weakness , fatigue, and poor p.o. intake. He had generally deconditioned significantly since his round of chemotherapy on 02/15/18. On the day of admission, he did not have enough energy even to come to the oncology office, so he called 911 and in the ED was noted to be hypoxic and pancytopenic. He was admitted to the oncology service and was treated for cellulitis with cefepime, hyponatremia with gentle IV fluids, esophagitis with magic mouthwash, anorexia with Marinol, and his chemotherapy was placed on hold for the pancytopenia. His hospital course was complicated by continued poor p.o. intake and generalized weakness as well as ongoing hypoxia with no baseline O2 requirement. IV fluids were discontinued and diuresis was begun. His course was also complicated by nonsustained V-tach and a Cardiology consult was obtained. They recommended correction of electrolytes. An echocardiogram showed a preserved ejection fraction. On the day of his , he has been comfortable on 6 L of oxygen and stable. I rounded on him in the morning and his only complaint was burning from the potassium infusing into his line, which was then discontinued. On the afternoon of 03/02/18, he got up to ambulate with the aide, sustained an assisted fall and was transferred back to the bed. Upon my arrival, blood pressure was unable to be obtained, and again, I confirmed his DNR and DNI status with his and she confirmed that he clearly did not wish for resuscitation or intubation. He was pronounced at 3:49 p.m. on 03/02/18. His telemetry strips were reviewed, and his arrest was PEA. [id number]/[facility] #: [id number] [facility]
== END 2018-03-02 15:39 | disposition expired | DRG 808 ==
LOC: ED 09:26 → MED 13:32
PROVIDERS: ADMIT Internal Medicine Hematology & Oncology; ATTEND Internal Medicine Hematology & Oncology
PROC: 30233N1 Transfusion of Nonautologous Red Blood Cells into Peripheral Vein, Percutaneous Approach (ICD-10-PCS; principal; 2018-03-01)
PROC: 30233R1 Transfusion of Nonautologous Platelets into Peripheral Vein, Percutaneous Approach (ICD-10-PCS; 2018-03-01)
DX: D61.810 Antineoplastic chemotherapy induced pancytopenia (principal); J96.01 Acute respiratory failure with hypoxia; C34.90 Malignant neoplasm of unspecified part of unspecified bronchus or lung; C79.51 Secondary malignant neoplasm of bone; E87.1 Hypo-osmolality and hyponatremia; R04.2 Hemoptysis; I47.2 Ventricular tachycardia; L03.115 Cellulitis of right lower limb; I42.8 Other cardiomyopathies; I50.22 Chronic systolic (congestive) heart failure; J02.9 Acute pharyngitis, unspecified; L89.329 Pressure ulcer of left buttock, unspecified stage; L89.319 Pressure ulcer of right buttock, unspecified stage; I25.10 Atherosclerotic heart disease of native coronary artery without angina pectoris; H54.8 Legal blindness, as defined in USA; H26.9 Unspecified cataract; E83.51 Hypocalcemia; I34.0 Nonrheumatic mitral (valve) insufficiency; I49.1 Atrial premature depolarization; R63.0 Anorexia; Z66 Do not resuscitate; I48.91 Unspecified atrial fibrillation; R33.9 Retention of urine, unspecified; J43.9 Emphysema, unspecified; N18.9 Chronic kidney disease, unspecified; E11.22 Type 2 diabetes mellitus with diabetic chronic kidney disease; H35.30 Unspecified macular degeneration; K20.8 Other esophagitis; I95.9 Hypotension, unspecified; E87.6 Hypokalemia; I46.8 Cardiac arrest due to other underlying condition; I50.810 Right heart failure, unspecified; W19.XXXA Unspecified fall, initial encounter; Y92.239 Unspecified place in hospital as the place of occurrence of the external cause; Y84.2 Radiological procedure and radiotherapy as the cause of abnormal reaction of the patient, or of later complication, without mention of misadventure at the time of the procedure; Z92.21 Personal history of antineoplastic chemotherapy; Z87.891 Personal history of nicotine dependence; Z68.24 Body mass index [BMI] 24.0-24.9, adult; Z92.3 Personal history of irradiation; Z80.0 Family history of malignant neoplasm of digestive organs; Z80.49 Family history of malignant neoplasm of other genital organs; Z82.49 Family history of ischemic heart disease and other diseases of the circulatory system; Z82.3 Family history of stroke
CPT/HCPCS: 36415; 71250; 71275; 72125; 80053; 82553; 82607; 83605; 83735; 83880; 84436; 84443; 84484; 85025; 85027; 85049; 85060; 85610; 85730; 86850; 86900; 86901; 86922; 87651; 93005; 93306; 99223; 99232; 99233; 99284; A9270-GY; J0610; J0692; J1940; J2930; J3475; J3480; P9016; P9035; P9040; Q5101; Q9967